=== PATIENT | female | born 1965 | race African-American/Black ===

== ENCOUNTER 2025-08-21 08:47 | Outpatient (REF) | payer BC, SELFPAY ==
[2025-08-21 09:59] LABS: MANUAL DIFF FLAG NO
[2025-08-21 10:05] LABS: Venous Blood Gas Refer to POC result
[2025-08-21 10:08] LABS: VBG HCO3 24 mmol/L (22-26); VBG O2 % Saturation 88.0 %
[2025-08-21 10:34] LABS: Hematocrit 41.5 % (37.0-47.0); Hemoglobin 13.5 g/dl (12.0-16.0); Imm Gran Abs Auto 0.03 X10*3/uL (0.00-0.03); Imm Gran Pct Auto 0.4 % (0.0-0.4); Lymphocytes Absolute Auto 1.8 X10*3/uL (1.2-4.9); Mean Corpuscular HGB Conc 32.5 g/dl (31.0-35.0); Mean Corpuscular Hemoglobin 27.4 pg (27.0-33.0); Mean Corpuscular Volume 84.2 fL (80.0-98.0); NRBC Abs Auto 0.000 X10*3/uL (0.0-0.012); NRBC Pct Auto 0.0 /100WBC (0.0-0.2); Platelet Count 319 X10*3/uL (160-400); Red Blood Count 4.93 X10*6/uL (4.20-5.50); White Blood Count 7.5 X10*3/uL (4.8-10.8)
[2025-08-21 10:54] LABS: D Dimer High Sensitivity 388 NG/ML
[2025-08-22 14:28] LABS: Proteinase 3 PR3 Antibodies <1.0 AI
[2025-08-22 15:28] LABS: Immunoglobulin G Subclass 1 648 mg/dL (382-929); Immunoglobulin G Subclass 2 357 mg/dL (241-700); Immunoglobulin G Subclass 3 65 mg/dL (22-178); Immunoglobulin G Subclass 4 103.9 mg/dL (4-86); Immunoglobulin G Total 1213 mg/dL (600-1640)
[2025-08-28 13:33] LABS: Asperg fumigatus Precip Abs NEGATIVE (NEGATIVE); Micropoly faeni Abs NEGATIVE (NEGATIVE); Saccharo pora viridis Abs NEGATIVE (NEGATIVE); Thermo candidus Abs NEGATIVE (NEGATIVE)
== END 2025-08-21 08:48 | disposition home or self-care (01) ==
LOC: HO.LAB 08:47
PROVIDERS: PCP Physician Assistant; Referring Provider Physician Assistant; Visit Provider Hospitalist
DX: J45.50 Severe persistent asthma, uncomplicated (principal); J33.9 Nasal polyp, unspecified; L20.82 Flexural eczema; R91.1 Solitary pulmonary nodule; R06.02 Shortness of breath; R91.8 Other nonspecific abnormal finding of lung field; Z01.84 Encounter for antibody response examination
CPT/HCPCS: 36415; 82103; 82164; 82784; 82785; 82803; 85025; 85379; 85652; 86021; 86331; 86606; 86609; 90471; 90656

== ENCOUNTER 2025-08-21 08:47 | Outpatient (AMB) | payer BC, SELFPAY ==
--- NOTE | 2025-08-21 08:53 | MHC.OFFVIS ---
Vital Signs 08/21/25 08:55 Height 5 ft 7 in Weight 250 lb 3.594 oz BMI 39.2 BP 142/78 H Blood Pressure Location Lt brachial Position Sitting Pulse 91 Pulse Source Pulse Oximeter Pulse Oximetry (%) 97 Oxygen Delivery Method Room Air Intake Visit Reasons: Asthma Cuprous Chloride Operator Required: No Accompanied by: Self / Same As Patient Allergies No Known Allergies Allergy (Verified 08/21/25 08:56) HPI Comments Details: The patient is here for pulmonary evaluation. The patient is a 60 year woman with known childhood asthma and significant allergies. She has been followed by Allergy for many years. The patient had been on allergy shots and now has been on Dupixent. Prior to Dupixent she had been on multiple other biologics without any significant response. Because of her ongoing symptoms and shortness of breath the patient was referred to Pulmonary at [facility]. There she did have a pulmonary function study which I personally reviewed demonstrating a [id number] obstructive ventilatory defects suggesting asthma COPD overlap syndrome. The patient also may have just had uncontrolled asthma. [facility] The patient did have a CT scan of the chest PE protocol back in February 2024 for underlying pulmonary nodule. I did personally evaluate the CAT scans in the nodules measuring around 8.5 mm in size. She did have a repeat CAT scan in August 2024 demonstrating no significant changes in that nodule. No evidence of any thromboembolic disease also not initial CAT scan back in February. In view of her ongoing symptoms a question of her wheezing and asthma and needing prednisone if there is any other etiologies. Therefore will go ahead and add additional blood work. Apparently there is a family member with underlying sarcoid which is her son. Although the pulmonary nodules that she has not location is not consistent with a diagnosis of sarcoid. Therefore, the patient will continue her current respiratory therapy since his effective for her. Consider budesonide nebs specially since she has some evidence of significant air trapping hyperinflation. We did talk about mechanical ways to help her self with that which will be playing harmonica singing and going for walks and deep breathing exercises. The patient will need to have a repeat CAT scan. Although we are going to go ahead and do blood work to figure out what kind of CAT scan to order. [facility] Medical History (Updated 08/21/25 @ 20:34 by Dalton Gray MD) Dyspnea Pulmonary nodule Eczema Nasal polyposis Asthma Social History (Updated 08/21/25 @ 08:58 by Irlanda Blount CMA) Patient Tobacco Use Status: Never used Tobacco Review of Systems Const Denies daytime sleepiness and Denies fever(s) Eyes Reports no additional complaints ENT Reports nasal congestion Card Denies chest pain Resp Reports chest congestion, Reports cough and Reports wheezing GI Reports no additional complaints Musc Reports no additional complaints Skin/Breast Reports rash Neuro Reports no additional complaints Endo Reports no additional complaints Jamison/Lymph Reports no additional complaints Aller/Immun Reports wheezing Physical Exam Vital Signs: Last Vital Signs Pulse 91 08/21/25 08:55 BP 142/78 H 08/21/25 08:55 Pulse Ox 97 08/21/25 08:55 Oxygen Delivery Method Room Air 08/21/25 08:55 BMI result Body Mass Index 39.2 Const General: comfortable HEENT Head: Yes normocephalic Neck Neck: Yes normal visual inspection Chest Chest palpation & inspection: normal inspection of the chest Resp Effort & Inspection: normal respiratory effort Auscultation: diminished lung sounds Cardio Heart sounds: S1 normal heart sound present and S2 normal heart sound present GI Palpation (GI): Soft to palpation Skin General skin exam: no rashes or lesions noted Extrem General: Yes no clubbing, cyanosis or edema Office Procedures Flu Questionnaire Does the patient have a severe egg allergy?: No Does the patient have severe life threatening allergies?: No Does the patient have a fever or illness today?: No Has the patient ever had Guillain-[place] Syndrome?: No Has the patient ever had any past reaction to a flu shot?: No Immunizations Fluarix [id number] (PF) 45 mcg (15 mcg x 3)/0.5 mL IM syringe Performing Provider: Dalton Gray MD [facility]forming [facility] [facility] Administered by: Usha Yo LPN on 08/21/25 09:36 Dose Route Admin Location Dispensed Lot Number Expiration Date NDC Hydrate Control Tender 0.5 mL IM Left Deltoid 0.5 mL [id number] 04/02/26 57133-728-85 Signal Patterns VIS Given Date VIS Provided VIS Publication Date 08/21/25 Single Vaccine 24 Eligibility Eligibility Date Funding Source Not [facility] Eligible 08/21/25 Private Assessment & Plan Assessment & Plan (1) Asthma: Code(s): J45.909 - Unspecified asthma, uncomplicated Category: Medical Qualifiers: Asthma severity: severe Asthma persistence: persistent Asthma complication type: uncomplicated Qualified Code(s): J45.50 - Severe persistent asthma, uncomplicated (2) Nasal polyposis: Code(s): J33.9 - Nasal polyp, unspecified Category: Medical (3) Eczema: Code(s): L30.9 - Dermatitis, unspecified Category: Medical Qualifiers: Eczema type: flexural Qualified Code(s): L20.82 - Flexural eczema (4) Pulmonary nodule: Code(s): R91.1 - Solitary pulmonary nodule Category: Medical (5) Dyspnea: Code(s): R06.00 - Dyspnea, unspecified Category: Medical Qualifiers: Dyspnea type: dyspnea on exertion Qualified Code(s): R06.09 - Other forms of dyspnea Plan continue Trelegy KEERTHI as needed continue Dupixent Bloodwork Repeat CT chest F/U 2-3 months Orders: Orders Complete Blood Count Auto Diff Today J45.909 - Unspecified asthma, uncomplicated Immunoglobulin E Today J45.909 - Unspecified asthma, uncomplicated ANCA Vasculitides Today J45.909 - Unspecified asthma, uncomplicated Alpha 1 Anti-trypsin Today J45.909 - Unspecified asthma, uncomplicated Angiotensin Converting Enzyme Today J45.909 - Unspecified asthma, uncomplicated Erythrocyte Sedimentation Rate Today J45.909 - Unspecified asthma, uncomplicated D Dimer High Sensitivity Today J45.909 - Unspecified asthma, uncomplicated Venous Blood Gas Today J45.909 - Unspecified asthma, uncomplicated Hypersensitive Pneumonitis Prf Today J45.909 - Unspecified asthma, uncomplicated, R91.8 - Other nonspecific abnormal finding of lung field Immunoglobulin G Subclasses Today J45.909 - Unspecified asthma, uncomplicated Influenza [id number] Immunization Today J45.909 - Unspecified asthma, uncomplicated Coding Level of Care Code New Pt Level 4 (10841) Diagnoses Severe persistent asthma without complication J45.50 Asthma severity: severe Asthma persistence: persistent Asthma complication type: uncomplicated Nasal polyposis J33.9 Flexural eczema L20.82 Eczema type: flexural Pulmonary nodule R91.1 Dyspnea on exertion R06.09 Dyspnea type: dyspnea on exertion Time Spent (min) 45
[2025-08-21 08:55] VITALS: BP 142/78; PULSE 91; O2SAT 97; BMI 39.2
== END 2025-08-21 09:46 | disposition home or self-care (01) ==
LOC: HO.HPS 08:47
PROVIDERS: PCP Physician Assistant; Referring Provider Physician Assistant; Visit Provider Hospitalist
DX: J45.50 Severe persistent asthma, uncomplicated (principal); J33.9 Nasal polyp, unspecified; L20.82 Flexural eczema; R91.1 Solitary pulmonary nodule; R06.09 Other forms of dyspnea; J45.909 Unspecified asthma, uncomplicated
CPT/HCPCS: 99204

== ENCOUNTER 2025-09-13 15:14 | Outpatient (REF) | payer BC, SELFPAY ==
--- OUTSIDE RECORDS SUMMARY | 2025-06-05 11:00 | XMS_ITS ---
Author Organization [facility] Address [address] [place] [address] Care Team Providers Care Commercial Subcontractor Name Role Phone Kristen Mendez Primary Care Provider Unavail able Ebonie Whitman [phone] Encounters Encounter Location Date Provider Diagnosis [address] [address] 06/05/2025 Ebonie Whitman Plan Of Treatment Next Appt Details Provider Name:Ebonie Keily Whitman , 11/13/2025 09:30:00 AM, [address] [place] [address] [place], [address], Progress Notes * Catherine BERMUDEZ TDOB:[birth year] (60 yo F)Acc No.[id number]:06/05/2025 Progress Note Patient: Jenifer YOGI Catherine Back Provider: Wong Whitman DPM :1965 A ge:60 Y S ex:Female Date:06/05/2025 Address:[address] [place], [place] Pcp:Krisetn Mendez Subjective: * Chief Complaints: * * Medical History: Objective: * Vitals: Assessment: Plan: * Treatment: * Images: * The named appointment provid er may or may not be the originator of this progress note, and it is not deemed complete until electronically signed by the appointment provider. Sign off status: Pending * Provider: Wong Whitman DPM Date: 0 06/05/2025 Generated for Juliano paniagua/Tuan/Nain on: 1 11/14/2024 10:47 PM EST
--- NOTE | ~2025-09-13 | CT_ITS ---
EXAMINATION: CT CHEST ANGIOGRAPHY WITH IV CONTRAST INDICATION: R06.09 - Other forms of dyspnea COMPARISON: There are no prior studies available for comparison. TECHNIQUE: Helical CT scan of the chest was performed following administration of intravenous contrast (65 mL Omnipaque 350). The contrast bolus was timed to optimally opacify the pulmonary arteries. Thin sections were obtained through the pulmonary arteries. Coronal and sagittal reformatted images were generated. 3D/MIP reconstructed images are also obtained and reviewed. This CT exam was performed with one or more of the following dose reduction techniques: automated exposure control, adjustment of the mA and/or kV according to patient size, use of iterative reconstruction technique. DLP: 150 mGy-cm CHEST: THYROID: The thyroid gland is unremarkable. PULMONARY ARTERIES: No intraluminal filling defects are identified within the pulmonary arteries to suggest pulmonary emboli. LUNGS: There is linear scarring in the right middle lobe and left lower lobe. There is a 9 x 8 mm nodule in the right lower lobe (series 6, image 111). No additional nodules or airspace opacities are identified. MEDIASTINUM: There is no mediastinal lymphadenopathy. JORGE: There is no hilar lymphadenopathy. CARDIOVASCULATURE: The heart is normal in size. There is no pericardial effusion. The thoracic aorta is normal in caliber. DEGREE OF CORONARY CALCIFICATION: not evaluable, due to dense contrast in the coronary arteries. PLEURA: There is no pleural effusion. No pneumothorax. MAIN AIRWAYS: The mainstem bronchi and proximal branches are patent. AXILLA: There is no axillary lymphadenopathy. UPPER ABDOMEN: The visualized portions of the liver, spleen, and adrenals are unremarkable. BONES AND SOFT TISSUES: Unremarkable. CT/CT angio chest PE protocol IMPRESSION: 1. No evidence of pulmonary emboli. 2. 9 x 8 mm right lower lobe nodule. PET/CT scan is recommended. Findings were sent to Dr. Gray by secure text message on 09/14/2025 at 7:13 AM. Fleischner Criteria for pulmonary nodule follow-up SOLID NODULES: Low risk patient: <6mm: no follow-up 6-8mm: 6 month follow-up CT >8mm: PET/Biopsy/ 3 month follow-up CT High risk patient: <6mm: 12 month follow-up CT 6-8mm: 6 month follow-up CT >8mm: PET/Biopsy/ 3 month follow-up CT SUB-SOLID/GROUNDGLASS NODULES: All patients: > or = 6mm: 6 month follow-up CT *Please note that in patients in the following categories, the Fleischner criteria do not apply: Immunocompromised, lung cancer screening population, age below 35, and patients with known malignancy Electronically signed by: Frank Pablo MD 09/14/2025 07:14 AM JAIME
[2025-09-13 16:04] LABS: Anion Gap 11 (12-20); Blood Urea Nitrogen 20 mg/dL (9-16); Calcium 9.9 mg/dL (8.4-10.2); Carbon Dioxide 26 mmol/L (22-29); Chloride 106 mmol/L (96-108); Estimated Glomerular Filt Rate > 60; Potassium 4.0 mmol/L (3.3-5.1); Sodium 139 mmol/L (135-145)
[2025-09-13] MEDS: iohexoL 350 MG/ML 100 ML INFUS..BTL 65 ML IV (17:01)
--- OUTSIDE RECORDS SUMMARY | 2025-09-13 22:47 | XMS_ITS | Patient Health Record ---
[facility] Address [address] [place] [address] Care Team Providers Care Take Away Man Name Role Phone Kristen Mendez Primary Care Provider Unavail able Black, Ebonie Unavailable [phone] Pascual Pedro Unavailable [phone] Allergies Allergen (clinical drug ingredient) Drug/Non Drug Allergy documented on EMR Reaction Allergy Type Onset Date Status peaches and pears (uncoded) Unknown Allergy Active Results Component Value Reference Range Notes X ray : Foot, left 3V Reviewed date:07/17/2025 12:22:08 PM Interpretation:See Examination above Performing Lab: Notes/Report: See Examination above X ray : Foot, right 3V Reviewed date:07/17/2025 12:21:54 PM Interpretation:See Examination above Performing Lab: Notes/Report: See Examination above Reason For Referral No Information Medications Medication SIG (Take, Route, Frequency, Duration) Notes Start Date End Date Status Tezspire 210 MG/1.91ML as directed Subcutaneous Active Night Splint AFO - L1930 1 wear when at rest; Duration: 30 days Active Night Splint AFO - L1930 1 wear when at rest; Duration: 30 days Active Dupixent Not-Taking Ketoconazole 2 % in between toes Externally Once a day; Duration: 30 days Active Fluticasone Propionate Active Ammonium Lactate 12 % 1 application Exte rnally to affected areas of dry skin to feet except for between the toes Twice a day; Duration: 30 days Active Albuterol Active Singulair Active Advair HFA Active Immunizations Vaccine Route Administration Date Status Comme nts Influenza Unknown 07/17/2025 Refused Social History Tobacco Use: Social History Observation Description Date Details (start date - stop date) Never Smoker NA - NA Tobacco use other than smoking: Question Answer Notes Are you an other tobacco user? No Tobacco Control (Standard) Question Answer Notes Tobacco use: Nonsmoker Additional Findings: Tobacco non-user Current no nsmoker AUDIT-C (Standard) Question Answer Notes Did you have a drink contain ing alcohol in the past year? Yes How often did you have six o r more drinks on one occasion in the past year? Never (0 point) How many drinks did you have on a typical day when you were drinking in the past year? 1 or 2 drinks (0 point) How often did you have a dri nk containing alcohol in the past year? Monthly or less (1 point) Points 1 Interpretation Negative Problems Problem Type SNOMED Code ICD Code Onset Dates Problem Status W/U Status Risk Notes Problem Achilles bursitis (789688513) Achilles tendinitis of right lower extremity (M76.61) Active confirmed Problem Achilles bursitis (470021317) Achilles tendinitis of left lower extremity (M76.62) Active confirmed Vital Signs Blood pressure diastolic 68 mm Hg 07/17/2025 Height 5ft 7in in 07/17/2025 Blood pressure systolic 118 mm Hg 07/17/2025 Weight 233 lbs 07/17/2025 BMI 36.49 kg/m2 07/17/2025 Procedures Procedure Date Ordered Date Performed Result Body Sit e 06294-KMCKXWI NAIL, 1-5 09/28/2024 N/A [id number] NAIL, 1-5 07/17/2025 N/A Encounters Encounter Location Date Provider Diagnosis [address] [address] 09/28/2024 Pascual Pedro Xerosis of skin L85. 3 ; Onychomycosis B35.1 ; Pain in right toe(s) M79.674 ; Pain in left toe(s) M79.675 and Tinea pedis of both feet B35.[address] [address] 07/17/2025 Ebonie Black Xerosis of skin L85. 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 ; Pain of left heel M79.672 and Exostosis of left posterior calcaneus M77.32 [facility] [address] [address] 09/25/2024 Pascual Pedro [address] [address] 01/11/2025 Ebonie Whitman Tinea pedis of both feet B35.[address] [address] 06/01/2025 Ebonie J Carlos [address] [address] 08/06/2025 Ebonie Black Assessments Encounter Date Diagnosis (ICD Code) Assessment Notes Treatment Notes Treatment Clinical Notes Section Notes 09/28/2024 Xerosis of skin (ICD-10 - L85.3) 09/28/2024 Onychomycosis (ICD-10 - B35.1) 01/11/2025 Tinea pedis of both feet (ICD-10 - B35.3) 07/17/2025 Achilles tendinitis of left lower extremity (ICD-10 - M76.62) Patient Educated with: HEEL CORD STRETCHES.pdf (HEEL CORD STRETCHES.pdf) Patient Educated with: RICE THERAPY.pdf (RICE THERAPY.pdf) 07/17/2025 Xerosis of skin (ICD-10 - L85.3) 07/17/2025 Onychomycosis (ICD-10 - B35.1) 09/28/2024 Pain in right toe(s) (ICD-10 - M79.674) 09/28/2024 Pain in left toe(s) (ICD-10 - M79.675) 07/17/2025 Pain in right toe(s) (ICD-10 - M79.674) 07/17/2025 Pain in left toe(s) (ICD-10 - M79.675) 09/28/2024 Tinea pedis of both feet (ICD-10 - B35.3) 07/17/2025 Tinea pedis of both feet (ICD-10 - B35.3) 07/17/2025 Pain of right heel (ICD-10 - M79.671) 07/17/2025 Achilles tendinitis of right lower extremity (ICD-10 - M76.61) Patient Educated with: HEEL CORD STRETCHES.pdf (HEEL CORD STRETCHES.pdf) Patient Educated with: RICE THERAPY.pdf (RICE THERAPY.pdf) 07/17/2025 Exostosis of right posterior calcaneus (ICD-10 - M77.31) 07/17/2025 Pain of left heel (ICD-10 - M79.672) 07/17/2025 Exostosis of left posterior calcaneus (ICD-10 - M77.32) Plan Of Treatment Pending Test Test Name Order Date [id number] NAIL, 1-5 09/28/2024 [id number] NAIL, 1-5 07/17/2025 Next Appt Details Provider Name:Ebonie Michaud J Carlos , 11/13/2025 09:30:00 AM, [address] [facility], [place], [address], Insurance Providers Payer Name Payer Address Payer Phone Subscriber Number Group Number Insured Name Patient Relationship to Insured Coverage Start Date Coverage End Date [facility] [employer] Others [address] [place] [address] [phone] [id number] Catherine Benson Self - patient is the insured Medical (General) History Medical History History ICD Code asthma Back,Hip,and Knee pain Measles Chicken pox Surgical History Surgery Date(Month/Year) tonsillectomy 1978 tubal ligation 05/1999
--- OUTSIDE RECORDS SUMMARY | 2025-09-13 22:48 | XMS_ITS | Data Portability ---
Author Organization [facility], Main Office Address [address] [facility] [address] [place] [id number] Care Team Providers Care Tafe Lecturer Name Role Phone IAM PIERRE Process Line Operator YESICA ASCENCIO Customer Service Representative CHANCE MORENO Wirer Helper ROOPA GONZALEZ Motorcycle Service Technician [phone] JOSE GUADALUPE PRATT Sports Medicine WILLIAM MOREIRA Medical Oncologist KRISTEN MENDEZ Primary Care Provider SHAHAB RAY Paper Cutter Operator MALINI PARRISH Primary Care Provider Assessment No assessment recorded. Plan of Treatment Reminders Order Date Submit Date Provider Last Modified By Organization Details Last Modified Time Details Appointments None recorde d. Lab CBC w/ auto diff 2024 025 ARTIS [facility], [address], [place], [address], 5 18:05:46 iron + total iron-bi nding capacit y (TIBC), serum 2024 025 ARTIS [facility] (Centralized Electronic Ordering - All Locations), Patient Can Go To The Location Of Their Choice, [id number] 5 18:05:49 ferriti n, serum or plasma 2024 025 ARTIS [facility] (Centralized Electronic Ordering - All Locations), Patient Can Go To The Location Of Their Choice, 18:05:53 retic count, blood 2024 025 ARTIS [facility] (Centralized Electronic Ordering - All Locations), Patient Can Go To The Location Of Their Choice, 18:05:54 HIV 1 + 2, meaning ful use set 2024 025 ARTIS [facility], [address], [place], [address], 18:05:51 trepone ma pallidu m IgG + IgM Ab, QL, IA, serum 2024 025 [email or web address] [facility] (Centralized Electronic Ordering - All Locations), Patient Can Go To The Location Of Their Choice, 09:06:18 CT + NG RNA, PCR, unspeci fied specime n 2024 025 [email or web address] [facility] (Centralized Electronic Ordering - All Locations), Patient Can Go To The Location Of Their Choice, 09:06:18 lipid panel, serum 2024 025 ARTIS [facility], [address], [place], [address], 18:05:48 BMP, serum or plasma 2024 025 [facility], [address], [place], [address], 18:05:47 TSH, ultra-s ensitiv e, serum 2024 025 ARTIS [facility], [address], [place], [address], 18:05:52 Hepatit is C IgG Ab, qual, serum 2024 025 ARTIS [facility] (Centralized Electronic Ordering - All Locations), Patient Can Go To The Location Of Their Choice, [address] 06/10/202 5 18:05:51 lipid panel, serum 2023 024 ARTIS [facility] (Centralized Electronic Ordering - All Locations), Patient Can Go To The Location Of Their Choice, [address] 4 06:07:55 Referral gastroe nterolo gist referra l - for egd 2024 025 ARTIS Pierre MD, [address] [facility] [address], [place], [address], 5 11:56:05 physica l medicin e and rehabil itation referra l 2024 025 ARTIS Lopez MD, [address] [facility], [place], [address], 5 18:17:45 audiolo gist referra l - bilater al 2023 024 [facility] Aud[facility], [address] [facility] [place], [address], 4 09:55:22 Procedures None recorde d. Surgeries None recorde d. Imaging XR, cervica l spine 2024 025 [facility] Radiology, [address] [place], [address], 5 10:20:26 US, thyroid 2024 025 [facility] (Ultrasound), [address] [place], [address], 5 19:13:04 XR, lumbar spine 2024 025 [facility]iology, [address] [place], [address], 5 09:50:43 XR, thoraci c spine 2024 025 [facility], [address] [place], [address], 09:50:43 CT, chest, w/o contras t - to check on size of inciden viktoria 9 x 5 x 7 mm (averag e 7 mm) right lower lobe pulmona ry nodule noted on CTA done on 02/2024 024 [email or web address] [facility] (Ultrasound), [address] [place], [address], 10:03:41 Medication Orders cyclobe nzaprin e 5 mg tablet 2024 025 [facility]/Pharmacy #[id number], [address] [place], [address], 12:34:47 ciclopi chinyere 8 % topical solutio n 2023 024 [facility]/Pharmacy #[id number], [address] [place], [address], 11:21:45 Patient TargetsNo targets recorded. Patient Instructions Encounter Date Encounter Id Patient Instructions Last Modified By Organization Details Last Modified Time 02/21/2024 [id number] Starting a Weight-Loss Plan: Care Instructions [email or web address] Not available 03/06/2024 09:31:58 Nutrition Referral and Weight Management Follow-up Information [email or web address] Not available 03/06/2024 09:31:58 well visit, wome n 50 to 65: care instructions [email or web address] Not available 02/21/2024 09:17:22 08/04/2024 [id number] high cholesterol : care instructions Not available 08/04/2024 11:21:43 11/15/2024 [id number] Patient will follow up and keep appointment as scheduled. [email or web address] Not available 11/15/2024 20:25:58 02/23/2025 [id number] back care and preventing injuries: care instructions Not available 02/23/2025 13:51:41 getting back to normal after low back pain: care instructions Not available 02/23/2025 13:51:40 learning about relief for back pain Not available 02/23/2025 13:51:40 high cholesterol : care instructions Not available 02/23/2025 13:51:40 medical record request* [email or web address] Not available 02/28/2025 10:30:11 08/15/2025 [id number] neck pain: care instructions [email or web address] Not available 08/15/2025 12:34:40 neck: exercises pmadden Not available 08/15/2025 12:34:40 healthy upper back: exercises pmadden Not available 08/15/2025 12:34:40 neck trapeziss upper fibers standing stretch: exercises pmadden Not available 08/15/2025 12:34:40 headache: care instructions pmadden Not available 08/15/2025 12:34:40 tension headache : care instructions pmadden Not available 08/15/2025 12:34:41 Patient will follow up and keep appointment as scheduled. 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 Digger Referral for Marbin ateral hearing loss bilateral Referring Physician: Zehra Tobias, Family Medicine, Encounter Date: 02/21/2024 Physical Medicine And Rehabi litation Referral for Strain of back muscle Referring Physician: Malini Parrish, Internal Medicine, Encounter Date: 11/15/2024 Process Line Operator Referral for Gastroesophageal reflux disease without esophagitis for egd Referring Physician: Kristen Mendez, Family Medicine, Encounter Date: 02/23/2025 Results Created Date Observation Date Name Description Value Unit Range Abnormal Flag Note LastModifiedBy Organization Detail LastModifiedTime 02/21/20 24 02/22/2024 LIPID PANEL cholesterol, total 258 mg/dL 100-19 9 above high normal Not Available [facility] ([facility]) [address] [facility], [place], [address], 02/22/2024 06:07:55 02/21/20 24 02/22/2024 LIPID PANEL triglyceride s 118 mg/dL 0-149 Not Available [facility] ([facility]) [address] [facility], [place], [address], 02/22/2024 06:07:55 02/21/20 24 02/22/2024 LIPID PANEL HDL cholesterol 66 mg/dL >39 Not Available [facility] ([facility]) [address] [place], [address], 02/22/2024 06:07:55 02/21/20 24 02/22/2024 LIPID PANEL VLDL cholesterol katia 21 mg/dL 5-40 Not Available [facility] ([facility]) [address] [place], [address], 02/22/2024 06:07:55 02/21/20 24 02/22/2024 LIPID PANEL LDL chol calc ([facility]) 171 mg/dL 0-99 above high normal Not Available [facility] ([facility]) [address] [place], [address], 02/22/2024 06:07:55 02/21/20 24 02/22/2024 LIPID PANEL comment: ORDER SELECTOR Not Available [facility] ([facility]) [address] [place], [address], 02/22/2024 06:07:55 02/21/20 24 02/22/2024 TSH+F REE T4 TSH 0.576 uIU/m L 0.450- 4.500 Not Available [facility] ([facility]) [address] [place], [address], 02/22/2024 06:07:57 02/21/20 24 02/22/2024 TSH+F REE T4 T4,free(dire ct) 1.38 NG/dL 0.82-1 .77 Not Available [facility] ([facility]) [address] [place], [address], 02/22/2024 06:07:57 02/21/20 24 02/21/2024 CBC WITH DIFFE RENTI AL/PL ATELE T WBC 9.6 x10e3 /uL 3.4-10 .8 Not Available [facility] ([facility]) [address] [facility], [place], [address], 02/22/2024 06:07:58 02/21/20 24 02/21/2024 CBC WITH DIFFE RENTI AL/PL ATELE T RBC 4.55 x10e6 /uL 3.77-5 .28 Not Available [facility] ([facility]) [address] [facility], [place], [address], 02/22/2024 06:07:58 02/21/20 24 02/21/2024 CBC WITH DIFFE RENTI AL/PL ATELE T hemoglobin 12.7 g/dL 11.1-1 5.9 Not Available [facility] ([facility]) [address] [facility], [place], [address], 02/22/2024 06:07:58 02/21/20 24 02/21/2024 CBC WITH DIFFE RENTI AL/PL ATELE T hematocrit 39.2 % 34.0-4 6.6 Not Available [facility] ([facility]) [address] [facility], [place], [address], 02/22/2024 06:07:58 02/21/20 24 02/21/2024 CBC WITH DIFFE RENTI AL/PL ATELE T MCV 86 fL 79-97 Not Available [facility] ([facility]) [address] [place], [address], 02/22/2024 06:07:58 02/21/20 24 02/21/2024 CBC WITH DIFFE RENTI AL/PL ATELE T MCH 27.9 pg 26.6-3 3.0 Not Available [facility] ([facility]) [address] [place], [address], 02/22/2024 06:07:58 02/21/20 24 02/21/2024 CBC WITH DIFFE RENTI AL/PL ATELE T MCHC 32.4 g/dL 31.5-3 5.7 Not Available [facility] ([facility]) [address] [facility], [place], [address], 02/22/2024 06:07:58 02/21/20 24 02/21/2024 CBC WITH DIFFE RENTI AL/PL ATELE T RDW 15.4 % 11.7-1 5.4 Not Available [facility] ([facility]) [address] [facility], [place], [address], 02/22/2024 06:07:58 02/21/20 24 02/21/2024 CBC WITH DIFFE RENTI AL/PL ATELE T platelets 309 x10e3 /uL 150-45 0 Not Available [facility] ([facility]) [address] [facility], [place], [address], 02/22/2024 06:07:58 02/21/20 24 02/21/2024 CBC WITH DIFFE RENTI AL/PL ATELE T neutrophils 67 % not estab. Not Available [facility] ([facility]) [address] [facility], [place], [address], 02/22/2024 06:07:58 02/21/20 24 02/21/2024 CBC WITH DIFFE RENTI AL/PL ATELE T lymphs 23 % not estab. Not Available [facility] ([facility]) [address] [facility], [place], [address], 02/22/2024 06:07:58 02/21/20 24 02/21/2024 CBC WITH DIFFE RENTI AL/PL ATELE T monocytes 8 % not estab. Not Available [facility] ([facility]) [address] [facility], [place], [address], 02/22/2024 06:07:58 02/21/20 24 02/21/2024 CBC WITH DIFFE RENTI AL/PL ATELE T eos 2 % not estab. Not Available [facility] ([facility]) [address] [facility], [place], [address], 02/22/2024 06:07:58 02/21/20 24 02/21/2024 CBC WITH DIFFE RENTI AL/PL ATELE T basos 0 % not estab. Not Available [facility] ([facility]) [address] [place], [address], 02/22/2024 06:07:58 02/21/20 24 02/21/2024 CBC WITH DIFFE RENTI AL/PL ATELE T immature cells ORDER SELECTOR Not Available [facility] ([facility]) [address] [place], [address], 02/22/2024 06:07:58 02/21/20 24 02/21/2024 CBC WITH DIFFE RENTI AL/PL ATELE T neutrophils (absolute) 6.4 x10e3 /uL 1.4-7. 0 Not Available [facility] ([facility]) [address] [place], [address], 02/22/2024 06:07:58 02/21/20 24 02/21/2024 CBC WITH DIFFE RENTI AL/PL ATELE T lymphs (absolute) 2.2 x10e3 /uL 0.7-3. 1 Not Available [facility] ([facility]) [address] [place], [address], 02/22/2024 06:07:58 02/21/20 24 02/21/2024 CBC WITH DIFFE RENTI AL/PL ATELE T monocytes(ab solute) 0.8 x10e3 /uL 0.1-0. 9 Not Available [facility] ([facility]) [address] [place], [address], 02/22/2024 06:07:58 02/21/20 24 02/21/2024 CBC WITH DIFFE RENTI AL/PL ATELE T eos (absolute) 0.2 x10e3 /uL 0.0-0. 4 Not Available [facility] ([facility]) [address] [place], [address], 02/22/2024 06:07:58 02/21/20 24 02/21/2024 CBC WITH DIFFE RENTI AL/PL ATELE T baso (absolute) 0.0 x10e3 /uL 0.0-0. 2 Not Available [facility] ([facility]) [address] [facility], [place], [address], 02/22/2024 06:07:58 02/21/20 24 02/21/2024 CBC WITH DIFFE RENTI AL/PL ATELE T immature granulocytes 0 % not estab. Not Available [facility] ([facility]) [address] [facility], [place], [address], 02/22/2024 06:07:58 02/21/20 24 02/21/2024 CBC WITH DIFFE RENTI AL/PL ATELE T immature grans (abs) 0.0 x10e3 /uL 0.0-0. 1 Not Available [facility] ([facility]) [address] [facility], [place], [address], 02/22/2024 06:07:58 02/21/20 24 02/21/2024 CBC WITH DIFFE RENTI AL/PL ATELE T NRBC ORDER SELECTOR Not Available [facility] ([facility]) [address] [facility], [place], [address], 02/22/2024 06:07:58 02/21/20 24 02/21/2024 CBC WITH DIFFE RENTI AL/PL ATELE T hematology comments: ORDER SELECTOR Not Available [facility] ([facility]) [address] [facility], [place], [address], 02/22/2024 06:07:58 02/21/20 24 02/22/2024 COMP. METAB OLIC PANEL (14) glucose 100 mg/dL 70-99 above high normal Not Available [facility] ([facility]) [address] [facility], [place], [address], 02/22/2024 06:07:59 02/21/2024 0202/22/2024 COMP. METAB OLIC PANEL (14) BUN 12 mg/dL 6-24 Not Available [facility] ([facility]) [address] [place], [address], 02/22/2024 06:07:59 02/21/20 24 02/22/2024 COMP. METAB OLIC PANEL (14) creatinine 0.74 mg/dL 0.57-1 .00 Not Available [facility] ([facility]) [address] [place], [address], 02/22/2024 06:07:59 02/21/20 24 02/22/2024 COMP. METAB OLIC PANEL (14) eGFR 94 mL/mi n/1.7 3 >59 Not Available [facility] ([facility]) [address] [facility], [place], [address], 02/22/2024 06:07:59 02/21/20 24 02/22/2024 COMP. METAB OLIC PANEL (14) BUN/creatini ne ratio 16 9-23 Not Available [facility] ([facility]) [address] [place], [address], 02/22/2024 06:07:59 02/21/20 24 02/22/2024 COMP. METAB OLIC PANEL (14) sodium 142 mmol/ L 134-14 4 Not Available [facility] ([facility]) [address] [place], [address], 02/22/2024 06:07:59 02/21/20 24 02/22/2024 COMP. METAB OLIC PANEL (14) potassium 4.1 mmol/ L 3.5-5. 2 Not Available [facility] ([facility]) [address] [place], [address], 02/22/2024 06:07:59 02/21/20 24 02/22/2024 COMP. METAB OLIC PANEL (14) chloride 105 mmol/ L 96-106 Not Available [facility] ([facility]) [address] [place], [address], 02/22/2024 06:07:59 02/21/20 24 02/22/2024 COMP. METAB OLIC PANEL (14) carbon dioxide, total 21 mmol/ L 20 Not Available [facility] ([facility]) [address] [place], [address], 02/22/2024 06:07:59 02/21/20 24 02/22/2024 COMP. METAB OLIC PANEL (14) calcium 9.8 mg/dL 8.7-10 .2 Not Available [facility] ([facility]) [address] [place], [address], 02/22/2024 06:07:59 02/21/20 24 02/22/2024 COMP. METAB OLIC PANEL (14) protein, total 6.7 g/dL 6.0-8. 5 Not Available [facility] ([facility]) [address] [place], [address], 02/22/2024 06:07:59 02/21/20 24 02/22/2024 COMP. METAB OLIC PANEL (14) albumin 3.9 g/dL 3.8-4. 9 Not Available [facility] ([facility]) [address] [place], [address], 02/22/2024 06:07:59 02/21/20 24 02/22/2024 COMP. METAB OLIC PANEL (14) globulin, total 2.8 g/dL 1.5-4. 5 Not Available [facility] ([facility]) [address] [place], [address], 02/22/2024 06:07:59 02/21/20 24 02/22/2024 COMP. METAB OLIC PANEL (14) A/G ratio 1.4 1.2-2. 2 Not Available [facility] ([facility]) [address] [facility], [place], [address], 02/22/2024 06:07:59 02/21/20 24 02/22/2024 COMP. METAB OLIC PANEL (14) bilirubin, total 0.5 mg/dL 0.0-1. 2 Not Available [facility] ([facility]) [address] [place], [address], 02/22/2024 06:07:59 02/21/20 24 02/22/2024 COMP. METAB OLIC PANEL (14) alkaline phosphatase 80 IU/L 44-121 Not Available [facility] ([facility]) [address] [place], [address], 02/22/2024 06:07:59 02/21/20 24 02/22/2024 COMP. METAB OLIC PANEL (14) AST (SGOT) 20 IU/L 0-40 Not Available [facility] ([facility]) [address] [place], [address], 02/22/2024 06:07:59 02/21/20 24 02/22/2024 COMP. METAB OLIC PANEL (14) ALT (SGPT) 29 IU/L 0-32 Not Available [facility] ([facility]) [address] [place], [address], 02/22/2024 06:07:59 02/21/20 24 02/22/2024 IRON AND TIBC iron bind.cap.(TI BC) 310 ug/dL 250-45 0 Not Available [facility] ([facility]) [address] [place], [address], 02/22/2024 06:08:00 02/21/20 24 02/22/2024 IRON AND TIBC UIBC 224 ug/dL 131-42 5 Not Available [facility] ([facility]) [address] [place], [address], 02/22/2024 06:08:00 02/21/20 24 02/22/2024 IRON AND TIBC iron 86 ug/dL 27-159 Not Available [facility] ([facility]) [address] [facility], [place], [address], 02/22/2024 06:08:00 02/21/20 24 02/22/2024 IRON AND TIBC iron saturation 28 % 15-55 Not Available [facility] ([facility]) [address] [facility], [place], [address], 02/22/2024 06:08:00 02/21/20 24 02/22/2024 VITAM IN D, 25-HY DROXY vitamin D, 25-hydroxy 26.2 NG/mL 30.0-1 00.0 below low normal Vitam in D defic iency has been defin ed by the Insti tute of Medic ine and an Endoc rine Socie ty pract ice guide line as a level of serum 25-OH vitam in D less than 20 ng/mL (1,2) . The Endoc rine Socie ty went on to furth er defin e vitam in D insuf ficie ncy as a level betwe en 21 and 29 ng/mL (2). 1. IOM (Inst itute of Medic ine). 2009. Dieta ry refer ence intak es for calci um and D. Radha frost [place]: [facility] . 2. Donna flores [place], Kiki ey [place], Chad off-F errar i GARNER, et al. Evalu ation , treat ment, and preve ntion of vitam in D defic iency : an Endoc rine Socie ty clini katia pract ice guide line. JCEM. 2010; 96(7) :1911 -30. Not Available [facility] ([facility]) [address] [facility], [place], [address], 02/22/2024 06:08:01 03/12/20 25 03/12/2025 CBC WITH DIFFE RENTI AL/PL ATELE T WBC 5.8 x10e3 /uL 3.4-10 .8 normal Not Available [facility] ([facility]) [address] [facility], [place], [address], 03/13/2025 18:05:46 03/12/20 25 03/12/2025 CBC WITH DIFFE RENTI AL/PL ATELE T RBC 4.65 x10e6 /uL 3.77-5 .28 normal Not Available [facility] ([facility]) [address] [place], [address], 03/13/2025 18:05:46 03/12/20 25 03/12/2025 CBC WITH DIFFE RENTI AL/PL ATELE T hemoglobin 12.8 g/dL 11.1-1 5.9 normal Not Available [facility] ([facility]) [address] [place], [address], 03/13/2025 18:05:46 03/12/20 25 03/12/2025 CBC WITH DIFFE RENTI AL/PL ATELE T hematocrit 40.4 % 34.0-4 6.6 normal Not Available [facility] ([facility]) [address] [place], [address], 03/13/2025 18:05:46 03/12/20 25 03/12/2025 CBC WITH DIFFE RENTI AL/PL ATELE T MCV 87 fL 79-97 normal Not Available [facility] ([facility]) [address] [place], [address], 03/13/2025 18:05:46 03/12/20 25 03/12/2025 CBC WITH DIFFE RENTI AL/PL ATELE T MCH 27.5 pg 26.6-3 3.0 normal Not Available [facility] ([facility]) [address] [place], [address], 03/13/2025 18:05:46 03/12/20 25 03/12/2025 CBC WITH DIFFE RENTI AL/PL ATELE T MCHC 31.7 g/dL 31.5-3 5.7 normal Not Available [facility] ([facility]) [address] [facility], [place], [address], 03/13/2025 18:05:46 03/12/20 25 03/12/2025 CBC WITH DIFFE RENTI AL/PL ATELE T RDW 14.4 % 11.7-1 5.4 Not Available [facility] ([facility]) [address] [facility], [place], [address], 03/13/2025 18:05:46 03/12/20 25 03/12/2025 CBC WITH DIFFE RENTI AL/PL ATELE T platelets 297 x10e3 /uL 150-45 0 normal Not Available [facility] ([facility]) [address] [facility], [place], [address], 03/13/2025 18:05:46 03/12/20 25 03/12/2025 CBC WITH DIFFE RENTI AL/PL ATELE T neutrophils 51 % not estab. normal Not Available [facility] ([facility]) [address] [facility], [place], [address], 03/13/2025 18:05:46 03/12/20 25 03/12/2025 CBC WITH DIFFE RENTI AL/PL ATELE T lymphs 35 % not estab. normal Not Available [facility] ([facility]) [address] [facility], [place], [address], 03/13/2025 18:05:46 03/12/20 25 03/12/2025 CBC WITH DIFFE RENTI AL/PL ATELE T monocytes 9 % not estab. normal Not Available [facility] ([facility]) [address] [facility], [place], [address], 03/13/2025 18:05:46 03/12/20 25 03/12/2025 CBC WITH DIFFE RENTI AL/PL ATELE T eos 4 % not estab. normal Not Available [facility] ([facility]) [address] [place], [address], 03/13/2025 18:05:46 03/12/20 25 03/12/2025 CBC WITH DIFFE RENTI AL/PL ATELE T basos 1 % not estab. normal Not Available [facility] ([facility]) [address] [facility], [place], [address], 03/13/2025 18:05:46 03/12/20 25 03/12/2025 CBC WITH DIFFE RENTI AL/PL ATELE T immature cells ORDER SELECTOR Not Available [facility] ([facility]) [address] [facility], [place], [address], 03/13/2025 18:05:46 03/12/20 25 03/12/2025 CBC WITH DIFFE RENTI AL/PL ATELE T neutrophils (absolute) 3.0 x10e3 /uL 1.4-7. 0 normal Not Available [facility] ([facility]) [address] [place], [address], 03/13/2025 18:05:46 03/12/20 25 03/12/2025 CBC WITH DIFFE RENTI AL/PL ATELE T lymphs (absolute) 2.0 x10e3 /uL 0.7-3. 1 normal Not Available [facility] ([facility]) [address] [place], [address], 03/13/2025 18:05:46 03/12/20 25 03/12/2025 CBC WITH DIFFE RENTI AL/PL ATELE T monocytes(ab solute) 0.5 x10e3 /uL 0.1-0. 9 normal Not Available [facility] ([facility]) [address] [place], [address], 03/13/2025 18:05:46 03/12/20 25 03/12/2025 CBC WITH DIFFE RENTI AL/PL ATELE T eos (absolute) 0.3 x10e3 /uL 0.0-0. 4 normal Not Available [facility] ([facility]) [address] [facility], [place], [address], 03/13/2025 18:05:46 03/12/20 25 03/12/2025 CBC WITH DIFFE RENTI AL/PL ATELE T baso (absolute) 0.1 x10e3 /uL 0.0-0. 2 normal Not Available [facility] ([facility]) [address] [facility], [place], [address], 03/13/2025 18:05:46 03/12/20 25 03/12/2025 CBC WITH DIFFE RENTI AL/PL ATELE T immature granulocytes 0 % not estab. Not Available [facility] ([facility]) [address] [facility], [place], [address], 03/13/2025 18:05:46 03/12/20 25 03/12/2025 CBC WITH DIFFE RENTI AL/PL ATELE T immature grans (abs) 0.0 x10e3 /uL 0.0-0. 1 Not Available [facility] ([facility]) [address] [facility], [place], [address], 03/13/2025 18:05:46 03/12/20 25 03/12/2025 CBC WITH DIFFE RENTI AL/PL ATELE T NRBC ORDER SELECTOR Not Available [facility] ([facility]) [address] [facility], [place], [address], 03/13/2025 18:05:46 03/12/20 25 03/12/2025 CBC WITH DIFFE RENTI AL/PL ATELE T hematology comments: ORDER SELECTOR Not Available [facility] ([facility]) [address] [facility] [address], [place], [address], 03/13/2025 18:05:46 03/12/20 25 03/12/2025 BASIC METAB OLIC PANEL (8) sodium 142 mmol/ L 134-14 4 normal Not Available [facility] ([facility]) [address] [place], [address], 03/13/2025 18:05:47 03/12/20 25 03/12/2025 BASIC METAB OLIC PANEL (8) potassium 4.2 mmol/ L 3.5-5. 2 normal Not Available [facility] ([facility]) [address] [facility] [address] [place], [place], [address], 03/13/2025 18:05:47 03/12/20 25 03/12/2025 BASIC METAB OLIC PANEL (8) chloride 107 mmol/ L 96-106 above high normal Not Available [facility] ([facility]) [address] [place], [address], 03/13/2025 18:05:47 03/12/20 25 03/13/2025 BASIC METAB OLIC PANEL (8) glucose 101 mg/dL 70-99 above high normal Not Available [facility] ([facility]) [address] [place], [address], 03/13/2025 18:05:47 03/12/20 25 03/13/2025 BASIC METAB OLIC PANEL (8) BUN 15 mg/dL 6-24 normal Not Available [facility] ([facility]) [address] [place], [address], 03/13/2025 18:05:47 03/12/20 25 03/13/2025 BASIC METAB OLIC PANEL (8) creatinine 0.78 mg/dL 0.57-1 .00 normal Not Available [facility] ([facility]) [address] [place], [address], 03/13/2025 18:05:47 03/12/20 25 03/13/2025 BASIC METAB OLIC PANEL (8) eGFR 88 mL/mi n/1.7 3 >59 normal Not Available [facility] ([facility]) [address] [place], [address], 03/13/2025 18:05:47 03/12/20 25 03/13/2025 BASIC METAB OLIC PANEL (8) BUN/creatini ne ratio 19 9-23 normal Not Available [facility] ([facility]) [address] [place], [address], 03/13/2025 18:05:47 03/12/20 25 03/13/2025 BASIC METAB OLIC PANEL (8) carbon dioxide, total 20 mmol/ L 20-29 normal Not Available [facility] ([facility]) [address] [place], [address], 03/13/2025 18:05:47 03/12/20 25 03/13/2025 BASIC METAB OLIC PANEL (8) calcium 9.3 mg/dL 8.7-10 .2 normal Not Available [facility] ([facility]) [address] [place], [address], 03/13/2025 18:05:47 03/12/20 25 03/13/2025 LIPID PANEL cholesterol, total 219 mg/dL 100-19 9 above high normal Not Available [facility] ([facility]) [address] [place], [address], 03/13/2025 18:05:48 03/12/20 25 03/13/2025 LIPID PANEL triglyceride s 100 mg/dL 0-149 normal Not Available [facility] ([facility]) [address] [place], [address], 03/13/2025 18:05:48 03/12/20 25 03/13/2025 LIPID PANEL HDL cholesterol 53 mg/dL >39 normal Not Available [facility] ([facility]) [address] [place], [address], 03/13/2025 18:05:48 03/12/20 25 03/13/2025 LIPID PANEL VLDL cholesterol katia 18 mg/dL 5-40 Not Available [facility] ([facility]) [address] [place], [address], 03/13/2025 18:05:48 03/12/20 25 03/13/2025 LIPID PANEL LDL chol calc ([facility]) 148 mg/dL 0-99 above high normal Not Available [facility] ([facility]) [address] [place], [address], 03/13/2025 18:05:48 03/12/20 25 03/13/2025 LIPID PANEL LDL calc comment: ORDER SELECTOR Not Available [facility] ([facility]) [address] [place], [address], 03/13/2025 18:05:48 03/12/20 25 03/13/2025 IRON AND TIBC iron bind.cap.(TI BC) 280 ug/dL 250-45 0 normal Not Available [facility] ([facility]) [address] [place], [address], 03/13/2025 18:05:48 03/12/20 25 03/13/2025 IRON AND TIBC UIBC 199 ug/dL 131-42 5 normal Not Available [facility] ([facility]) [address] [place], [address], 03/13/2025 18:05:48 03/12/20 25 03/13/2025 IRON AND TIBC iron 81 ug/dL 27-159 normal Not Available [facility] ([facility]) [address] [place], [address], 03/13/2025 18:05:48 03/12/20 25 03/13/2025 IRON AND TIBC iron saturation 29 % 15-55 normal Not Available [facility] ([facility]) [address] [place], [address], 03/13/2025 18:05:48 03/12/20 25 03/13/2025 CHLAM YDIA/ GC AMPLI FICAT ION chlamydia trachomatis, YISSEL Negati ve negati ve Not Available [facility] ([facility]) [address] [place], [address], 03/13/2025 18:05:50 03/12/20 25 03/13/2025 CHLAM YDIA/ GC AMPLI FICAT ION neisseria gonorrhoeae, YISSEL Negati ve negati ve Not Available [facility] ([facility]) [address] [facility], [place], [address], 03/13/2025 18:05:50 03/12/20 25 03/12/2025 T PALLI DUM SHIRIN OXANA CASCA DE interpretati on: Commen t Syphi lis: Trepo nemal Antib odies with Refle x to RPR and RPR Titer , Rever se Shirin daigle and Diagn osis Algor ithm ----- ----- ----- ----- ----- ----- ----- ----- ----- ----- ----- ----- Trepo nemal Trepo nemal Ab RPR, Qn Ab, TPPA Final Inter preta tion ----- ----- ----- --- ----- ----- ----- ----- ----- ----- --- Non N/A N/A No labor atory evide nce React dayton of syphi lis. Retes t in 2-4 weeks if recen t expos ure is suspe cted. ----- ----- ----- --- ----- ----- ----- ----- ----- ----- --- React dayton Non Non Trepo nemal antib odies React dayton React dayton not confi rmed. Incon clusi ve for syphi lis; poten tial early syphi lis, possi ble false posit dayton. Retes t in 2-4 weeks if recen t expos ure is suspe cted. ----- ----- ----- --- ----- ----- ----- ----- ----- ----- --- React dayton Non React dayton Trepo nemal antib odies React dayton detec bandar. Consi stent with past or curre nt (pote ntial early ) syphi lis. ----- ----- ----- --- ----- ----- ----- ----- ----- ----- --- React dayton >/=1: 1 N/A Trepo nemal and nontr epone mal antib odies detec bandar. Consi stent with curre nt or past syphi lis. Not Available [facility] ([facility]) [address] [facility], [place], [address], 03/13/2025 18:05:50 03/12/20 25 03/13/2025 T PALLI DUM SCREE OXANA CASCA DE T pallidum antibodies Non Reacti ve non reacti ve Not Available [facility] ([facility]) [address] [facility], [place], [address], 03/13/2025 18:05:50 03/12/20 25 03/13/2025 HCV ANTIB BONNIE RFX TO QUANT PCR HCV Ab Non Reacti ve non reacti ve Not Available [facility] ([facility]) [address] [place], [address], 03/13/2025 18:05:51 03/12/20 25 03/13/2025 HCV ANTIB BONNIE RFX TO QUANT PCR interpretati on: Commen t Not infec bandar with HCV unles s early or acute infec tion is suspe cted (whic h may be delay ed in an immun ocomp romis ed indiv idual ), or other evide nce exist s to indic ate HCV infec tion. Not Available [facility] ([facility]) [address] [facility], [place], [address], 03/13/2025 18:05:51 03/12/20 25 03/13/2025 HIV AB/P2 4 AG WITH REFLE X HIV Ab/P24 Ag screen Non Reacti ve non reacti ve HIV-1 /HIV- 2 antib odies and HIV-1 p24 antig en were NOT detec bandar. There is no labor atory evide nce of HIV infec tion. HIV Negat dayton Not Available [facility] ([facility]) [address] [place], [address], 03/13/2025 18:05:51 03/12/20 25 03/13/2025 TSH RFX ON ABNOR MAL TO FREE T4 TSH 2.420 uIU/m L 0.450- 4.500 normal Not Available [facility] ([facility]) [address] [place], [address], 03/13/2025 18:05:52 03/12/20 25 03/13/2025 ALVARO TIN ferritin 109 NG/mL 15-150 normal Not Available [facility] ([facility]) [address] [place], [address], 03/13/2025 18:05:53 03/12/20 25 03/12/2025 RETIC ULOCY TE COUNT reticulocyte count 1.0 % 0.6-2. 6 Not Available [facility] ([facility]) [address] [place], [address], 03/13/2025 18:05:54 08/22/20 24 08/22/2024 CT, chest , w/o contr ast CT Chest W/O Contra st INDICA TION: Reason : R91.1; follow -up pulmon michael nodule . Clinic al Questi on(s): Other: TECHNI QUE: Helica l CT scan of the chest withou t IV contra st, format bandar in 3 planes . Weight -based protoc ol was perfor med using automa tic exposu re contro l. COMPAR EMILIA: CT angiog jovany chest 02/06/20 FINDIN GS: Needle Molder view findin gs, lines and tubes: None. Trache a and airway s: Patent withou t eviden ce of trache al or endobr onchia l lesion . Lungs and pleura : 7 x 8 x 6 nodule in the medial right lower lobe (74/3) , previo usly approx imatel y 7 x 8 x 6 mm when measur ed simila rly. Puncta te micron odule in the left lung apex is unchan ged (20/12) . No new or enlarg ing nodule . No effusi on or pneumo thorax . Medias tinum and brandon: No mass or hemato ma. No medias tinal or hilar lympha denopa thy. No esopha geal abnorm ality. Partia lly imaged thyroi d is unrema rkable . Heart: Heart is normal in size. No perica rdial effusi on. No kramer ry arteri al calcif icatio ns. Aorta: No aortic aneury sm. Pulmon michael arteri es: Normal calibe r. Chest wall soft tissue s: No acute abnorm ality. Diaphr agm: Intact . Upper abdome n: No signif icant abnorm ality. Bones: No acute abnorm ality. IMPRES DIANNA: No interv al change in the medial right lower lobe nodule measur es approx imatel y 7 x 8 x 6 mm. If low risk for malign sandra, consid er follow -up CT at 18-24 months from the first examin ation. If unchan ged no furthe r follow -up. If high risk for malign sandra, recomm end CT at 18-24 months from the first examin ation and if unchan ged no furthe r follow up per Guidel girish for Manage ment of Incide ntal Pulmon michael Nodule s Detect ed on CT Images : From the [employer] y 2017. WSN: [id number] Orderi ng Physic vick: Te Baird ie Dictat ed By: Tereso Menezes MD Dictat ed Date/T noelle: 4:32 pm Review ed By: Tereso Menezes MD Signed By: Tereso Menezes MD Signed Date/T noelle: 4:32 pm Transc ribed By: CSB Transc ribed Date/T noelle: 4:16 pm Patien t Class: Outpat ient ARTIS [facility] (Outpt Imaging) [address] , [place], [address], 08/29/2024 23:07:07 10/10/19 25 10/10/2024 MAMMO , scree oxana, digit al, bilat eral PROCED URE: MM Digita l Mammo Screen ing INDICA TION: Screen ing for breast cancer . No known palpab le abnorm alitie s. COMPAR EMILIA: [facility] dating back to 2020. TECHNI QUE: Full-f ield digita l CC and MLO 3D tomosy nthesi s images of both breast s were acquir ed. Comput er-aid ed detect ion (CAD) was utiliz ed in the interp retati on of this study. DENSIT Y: There are scatte red areas of fibrog landul ar densit y. FINDIN GS: No suspic ious masses , suspic ious microc alcifi cation s, or areas of poonam ectura l distor tion are seen in either breast to sugges t malign sandra. Stable small intram ammary lymph node in the subare olar left breast . IMPRES DIANNA: No mammog raphic eviden ce of malign sandra. RECOMM ENDATI ON: Annual mammog raphic screen ing BI-RAD S: 2 (Benig n) Lay letter mailed to petra salcido WSN: [id number] Orderi ng Physic vick: Te Baird Dictat ed By: Viviana Bailey MD, I Dictat ed Date/T noelle: 11:06 am Review ed By: Viviana Bailey MD, I Signed By: Viviana Bailey MD, I Signed Date/T noelle: 11:06 am Transc ribed By: RUSH Transc riptio n Date/T noelle: 11:03 am Birads : Patinelsy t Class: Outpat ient [id number] [facility] (Outpt Imaging) [address] , [place], [address], 10/11/2024 10:05:56 10/10/1910/10/2024 MAMMO , scree oxana, digit al, bilat eral No observ ation record ed. 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 COMPAR EMILIA: 018. FINDIN GS: RIGHT THYROI D LOBE: 5.5 x 1.8 x 2.3 cm, volume 11.9 cc. Normal homoge neous echote xture. Diffus rosa increa sed parenc hymal vascul arity. Scatte red subcen timete r nodule s, includ ing a 0.8 cm nodule isolat ed for measur ement in the lower pole, which do not meet TI-RAD S criter ia for imagin g follow -up. LEFT THYROI D LOBE: 5.4 x 1.7 x 2.3 cm, volume 11.1 cc. Normal homoge neous echote xture. Diffus rosa increa sed parenc hymal vascul arity. Scatte red subcen timete r nodule s which do not meet TI-RAD S criter ia for imagin g follow -up. ISTHMU S: Thickn ess: 0.3 cm. IMPRES DIANNA: Scatte red subcen timete r nodule s which do not meet TI-RAD S criter ia for imagin g follow -up. Increa sed parenc hymal vascul arity may reflec t thyroi ditis. WSN: [id number] Orderi ng Physic vick: Te Baird Dictat ed By: Tereso Lazaro MD Dictat ed Date/T noelle: 5:32 pm Review ed By: Tereso Lazaro MD Signed By: Tereso Lazaro MD Signed Date/T noelle: 5:32 pm Transc ribed By: RUSH Transc ribed Date/T noelle: 4:44 pm Patien t Class: Outpat ient [facility] (Outpt Imaging) [address] , [place], [address], 03/13/2025 11:35:45 Result Notes Documentation Provider Name and Address Organization Details Recorded Time Ct, Chest, W/o Contrast : CT Chest W/O Contrast INDICATION: Reason: R91.1; follow-up pulmonary nodule. Clinical Question(s): Other: TECHNIQUE: Helical CT scan of the chest without IV contrast, formatted in 3 planes. Weight-based protocol was performed using automatic exposure control. COMPARISON: CT angiogram chest 02/06/2024 FINDINGS: Needle Molder view findings, lines and tubes: None. Trachea and airways: Patent without evidence of tracheal or endobronchial lesion. Lungs and pleura: 7 x 8 x 6 nodule in the medial right lower lobe (74/3), previously approximately 7 x 8 x 6 mm when measured similarly. Punctate micronodule in the left lung apex is unchanged (19/3). No new or enlarging nodule. No effusion or pneumothorax. Mediastinum and brandon: No mass or hematoma. No mediastinal or hilar lymphadenopathy. No esophageal abnormality. Partially imaged thyroid is unremarkable. Heart: Heart is normal in size. No pericardial effusion. No coronary arterial calcifications. Aorta: No aortic aneurysm. Pulmonary arteries: Normal caliber. Chest wall soft tissues: No acute abnormality. Diaphragm: Intact. Upper abdomen: No significant abnormality. Bones: No acute abnormality. IMPRESSION: No interval change in the medial right lower lobe nodule measures approximately 7 x 8 x 6 mm. If low risk for malignancy, consider follow-up CT at 18-24 months from the first examination. If unchanged no further follow-up. If high risk for malignancy, recommend CT at 18-24 months from the first examination and if unchanged no further followup per Guidelines for Management of Incidental Pulmonary Nodules Detected on CT Images: From the [employer] 2017. WSN: [id number] Ordering Physician: Kristen Mendez Dictated By: Tereso Menezes MD Dictated Date/Time: 08/22/24 4:32 pm Reviewed By: Tereso Menezes MD Signed By: Tereso Menezes MD Signed Date/Time: 08/22/24 4:32 pm Transcribed By: RUSH Transcribed Date/Time: 08/22/24 4:16 pm Patient Class: Outpatient KRISTEN MENDEZ MD [address], [place], [address], [facility] 08/23/2024 08:10:37 Mammo, Screening, Digital, Bilateral : PROCEDURE: MM Digital Mammo Screening INDICATION: Screening for breast cancer. No known palpable abnormalities. COMPARISON: [facility] dating back to 07/24/2021. TECHNIQUE: Full-field digital CC and MLO 3D tomosynthesis images of both breasts were acquired. Computer-aided detection (CAD) was utilized in the interpretation of this study. DENSITY: There are scattered areas of fibroglandular density. FINDINGS: No suspicious masses, suspicious microcalcifications, or areas of architectural distortion are seen in either breast to suggest malignancy. Stable small intramammary lymph node in the subareolar left breast. IMPRESSION: No mammographic evidence of malignancy. RECOMMENDATION: Annual mammographic screening BI-RADS: 2 (Benign) Lay letter mailed to patient WSN: [id number] Ordering Physician: Kristen Mendez Dictated By: Viviana Bailey MD, I Dictated Date/Time: 10/10/24 11:06 am Reviewed By: Viviana Bailey MD, I Signed By: Viviana Bailey MD, I Signed Date/Time: 10/10/24 11:06 am Transcribed By: RUSH Environmental Protection Geologist Date/Time: 10/10/24 11:03 am Birads: Patient Class: Outpatient Constanza Blackman odilia [facility] 10/11/2024 10:05:56 Problems Name Problem SNOMED Code Status Onset Date Resolution Date Notes Provider Name and Address Organization Details Recorded Time Dysfunct ional uterine bleeding Completed 09/22/2017 MARTHA Luna [facility] 7 13:31:19 Constipa tion [id number] Completed 09/22/2017 MARTHA Luna [facility] 7 13:31:16 Dysmenor jerrod [id number] Completed 09/22/2017 MARTHA Luna [facility] 7 13:31:25 Acute pharyngi tis 021124620 Completed 200804/17/2014 RECORDED 11/01/19 09 10:21AM BY NICKI BA MA, ANNOTRAMIREZ ON/ADDEN DUM Not Available [facility] 4 13:37:59 Screenin g for malignan t neoplasm of breast Completed 200804/17/2014 RECORDED 11/01/19 09 10:21AM BY NICKI BA MA, ANNOTATI ON/ADDEN DUM Not Available [facility] 4 13:38:00 Chest pain [id number] Completed 200804/17/2014 RECORDED 11/01/19 09 10:21AM BY NICKI BA MA, ANNOTATI ON/ADDEN DUM Not Available [facility] 4 13:38:00 Infectiv e hepatiti s immuniza tion Completed 200804/17/2014 RECORDED 11/01/19 09 10:21AM BY NICKI BA MA, ANNOTRAMIREZ ON/ADDEN DUM Not Available [facility] 4 13:38:01 Administ ration of measles and mumps and rubella vaccine Completed 200804/17/2014 RECORDED 11/01/19 09 10:21AM BY NICKI BA MA, PINKY ON/ADDEN DUM Not Available [facility] 4 13:38:01 Acute pharyngi tis 825811283 Completed 200805/10/2014 RECORDED 11/01/19 09 10:21AM BY NICKI BA MA, PINKY ON/ADDEN DUM Not Available [facility] 4 12:08:39 Screenin g for malignan t neoplasm of breast Completed 200805/10/2014 RECORDED 11/01/19 09 10:21AM BY NICKI BA MA, PINKY ON/ADDEN DUM Not Available [facility] 4 12:08:40 Chest pain 08074880 Completed 200805/10/2014 RECORDED 11/01/19 09 10:21AM BY NICKI BA MA, ANNOTATI ON/ADDEN DUM Not Available [facility] 4 12:08:40 Infectiv e hepatiti s immuniza tion Completed 200805/10/2014 RECORDED 11/01/19 09 10:21AM BY NICKI BA MA, ANNOTATI ON/ADDEN DUM Not Available [facility] 4 12:08:41 Administ ration of measles and mumps and rubella vaccine Completed 200805/10/2014 RECORDED 11/01/19 09 10:21AM BY NICKI BA MA, ANNOTATI ON/ADDEN DUM Not Available [facility] 4 12:08:41 Acute pharyngi tis 307060013 Completed 200805/11/2014 RECORDED 11/01/19 09 10:21AM BY NICKI BA MA, ANNOTATI ON/ADDEN DUM Not Available [facility] 4 03:31:30 Screenin g for malignan t neoplasm of breast Completed 200805/11/2014 RECORDED 11/01/19 09 10:21AM BY NICKI BA MA, ANNOTATI ON/ADDEN DUM Not Available [facility] 4 03:31:30 Chest pain 69409093 Completed 200805/11/2014 RECORDED 11/01/19 09 10:21AM BY NICKI BA MA, ANNOTATI ON/ADDEN DUM Not Available [facility] 4 03:31:30 Infectiv e hepatiti s immuniza tion Completed 200805/11/2014 RECORDED 11/01/19 09 10:21AM BY NICKI BA MA, ANNOTATI ON/ADDEN DUM Not Available [facility] 4 03:31:30 Administ ration of measles and mumps and rubella vaccine Completed 200805/11/2014 RECORDED 11/01/19 09 10:21AM BY NICKI BA MA, ANNOTATI ON/ADDEN DUM Not Available [facility] 4 03:31:30 Abdomina l tenderne [id number] Completed 201104/17/2014 RECORDED 06/29/20 12 9:58AM BY NICKI BA MA, PINKY ON/ADDEN DUM Not Available [facility] 4 13:37:59 Clinical finding Completed 201104/17/2014 RECORDED 06/29/20 12 9:58AM BY NICKI BA MA, PINKY ON/ADDEN DUM Not Available [facility] 4 13:37:59 Amenorrh ea 72873090 Completed 201104/17/2014 RECORDED 06/29/20 12 9:58AM BY NICKI BA MA, PINKY ON/ADDEN DUM Not Available [facility] 4 13:37:59 Acute sinusiti s 74188504 Completed 201104/17/2014 RECORDED 06/29/20 12 9:58AM BY NICKI BA MA, PINKY ON/ADDEN DUM Not Available [facility] 4 13:37:59 Screenin g for malignan t neoplasm of cervix Completed 201104/17/2014 RECORDED 06/29/20 12 9:57AM BY NICKI BA MA, PINKY ON/ADDEN DUM Not Available [facility] 4 13:38:00 Dysuria 37276487 Completed 201104/17/2014 RECORDED 06/29/20 12 9:58AM BY NICKI BA MA, PINKY ON/ADDEN DUM Not Available [facility] 4 13:38:00 General examinat ion of patient Completed 201104/17/2014 RECORDED 06/29/20 12 9:58AM BY NICKI BA MA, PINKY ON/ADDEN DUM Not Available [facility] 4 13:38:00 Well child [id number] Completed 201104/17/2014 RECORDED 06/29/20 12 9:58AM BY NICKI BA MA, ANNOTATI ON/ADDEN DUM Not Available [facility] 4 13:38:01 Headache 69970008 Completed 201104/17/2014 RECORDED 06/29/20 12 9:57AM BY NICKI BA MA, ANNOTATI ON/ADDEN DUM Not Available [facility] 4 13:38:01 Eruption [id number] Completed 201104/17/2014 IMPRESSI ON: LOOKS LIKE SCABIES, TX WITH ELIMITE, HIRAM CALLING IT IN, INSTRUCT IONS ABOUT CLEANING SHEETS.; RECORDED 06/29/20 12 9:57AM BY NICKI BA MA, PINKY ON/ADDEN DUM Not Available [facility] 4 13:38:01 Hemorrha ge of rectum and anus 103681372 Completed 201104/17/2014 RECORDED 06/29/20 12 9:58AM BY NICKI BA MA, ANNOTRAMIREZ ON/ADDEN DUM Not Available [facility] 4 13:38:01 Chronic sinusiti s 12829788 Completed 201104/17/2014 RECORDED 06/29/20 12 9:58AM BY NICKI BA MA, ANNOTATI ON/ADDEN DUM Not Available [facility] 4 13:38:02 Trichomo nal vulvovag initis 17470667 Completed 201104/17/2014 RECORDED 06/29/20 12 9:57AM BY NICKI BA MA, DEBORAHATI ON/ADDEN DUM Not Available [facility] 4 13:38:02 Vaginiti s and vulvovag initis Completed 201104/17/2014 IMPRESSI ON: SOME ITCHING CHECK FOR INFECTIO N; RECORDED 06/29/20 12 9:58AM BY NICKI BA MA, ANNOTATI ON/ADDEN DUM Not Available [facility] 4 13:38:02 Abdomina l tenderne ss [id number] Completed 201105/10/2014 RECORDED 06/29/20 12 9:58AM BY NICKI BA MA, ANNOTATI ON/ADDEN DUM Not Available [facility] 4 12:08:39 Clinical finding Completed 201105/10/2014 RECORDED 06/29/20 12 9:58AM BY NICKI BA MA, ANNOTATI ON/ADDEN DUM Not Available [facility] 4 12:08:39 Amenorrh ea 13817476 Completed 201105/10/2014 RECORDED 06/29/20 12 9:58AM BY NICKI BA MA, ANNOTATI ON/ADDEN DUM Not Available [facility] 4 12:08:39 Acute sinusiti s 69006727 Completed 201105/10/2014 RECORDED 06/29/20 12 9:58AM BY NICKI BA MA, ANNOTATI ON/ADDEN DUM Not Available [facility] 4 12:08:39 Screenin g for malignan t neoplasm of cervix Completed 201105/10/2014 RECORDED 06/29/20 12 9:57AM BY NICKI BA MA, ANNOTATI ON/ADDEN DUM Not Available [facility] 4 12:08:40 Dysuria [id number] Completed 201105/10/2014 RECORDED 06/29/20 12 9:58AM BY NICKI BA MA, ANNOTATI ON/ADDEN DUM Not Available [facility] 4 12:08:40 General examinat ion of patient Completed 201105/10/2014 RECORDED 06/29/20 12 9:58AM BY NICKI BA MA, ANNOTATI ON/ADDEN DUM Not Available [facility] 4 12:08:40 Well child [id number] Completed 201105/10/2014 RECORDED 06/29/20 12 9:58AM BY NICKI BA MA, ANNOTATI ON/ADDEN DUM Not Available [facility] 4 12:08:40 Headache 78006462 Completed 201105/10/2014 RECORDED 06/29/20 12 9:57AM BY NICKI BA MA, ANNOTATI ON/ADDEN DUM Not Available [facility] 4 12:08:40 Eruption [id number] Completed 201105/10/2014 IMPRESSI ON: LOOKS LIKE SCABIES, TX WITH ELIMITE, HIRAM CALLING IT IN, INSTRUCT IONS ABOUT CLEANING SHEETS.; RECORDED 06/29/20 12 9:57AM BY NICKI BA MA, PINKY ON/ADDEN DUM Not Available [facility] 4 12:08:41 Hemorrha ge of rectum and anus 394802753 Completed 201105/10/2014 RECORDED 06/29/20 12 9:58AM BY NICKI BA MA, ANNOTATI ON/ADDEN DUM Not Available [facility] 4 12:08:41 Chronic sinusiti s 69895163 Completed 201105/10/2014 RECORDED 06/29/20 12 9:58AM BY NICKI BA MA, ANNOTATI ON/ADDEN DUM Not Available [facility] 4 12:08:41 Trichomo nal vulvovag initis 58559577 Completed 201105/10/2014 RECORDED 06/29/20 12 9:57AM BY NICKI BA MA, ANNOTATI ON/ADDEN DUM Not Available [facility] 4 12:08:41 Vaginiti s and vulvovag initis Completed 201105/10/2014 IMPRESSI ON: SOME ITCHING CHECK FOR INFECTIO N; RECORDED 06/29/20 12 9:58AM BY NICKI BA MA, PINKY ON/ADDEN DUM Not Available [facility] [facility] 12:08:41 Abdomina l tenderne ss [id number] Completed 201105/11/2014 RECORDED 06/29/20 12 9:58AM BY NICKI BA MA, ANNOTRAMIREZ ON/ADDEN DUM Not Available [facility] 4 03:31:30 Clinical finding Completed 201105/11/2014 RECORDED 06/29/20 12 9:58AM BY NICKI BA MA, ANNOTRAMIREZ ON/ADDEN DUM Not Available [facility] 4 03:31:30 Amenorrh ea [id number] Completed 201105/11/2014 RECORDED 06/29/20 12 9:58AM BY NICKI BA MA, ANNOTATI ON/ADDEN DUM Not Available [facility] 4 03:31:30 Acute sinusiti s [id number] Completed 201105/11/2014 RECORDED 06/29/20 12 9:58AM BY NICKI BA MA, PINKY ON/ADDEN DUM Not Available [facility] 4 03:31:30 Screenin g for malignan t neoplasm of cervix Completed 201105/11/2014 RECORDED 06/29/20 12 9:57AM BY NICKI BA MA, ANNOTRAMIREZ ON/ADDEN DUM Not Available [facility] 4 03:31:30 Dysuria [id number] Completed 201105/11/2014 RECORDED 06/29/20 12 9:58AM BY NICKI BA MA, ANNOTRAMIREZ ON/ADDEN DUM Not Available [facility] 4 03:31:30 General examinat ion of patient Completed 201105/11/2014 RECORDED 06/29/20 12 9:58AM BY NICKI BA MA, ANNOTRAMIREZ ON/ADDEN DUM Not Available [facility] 4 03:31:30 Well child [id number] Completed 201105/11/2014 RECORDED 06/29/20 12 9:58AM BY NICKI BA MA, ANNOTRAMIREZ ON/ADDEN DUM Not Available [facility] 4 03:31:30 Headache [id number] Completed 201105/11/2014 RECORDED 06/29/20 12 9:57AM BY NICKI BA MA, ANNOTATI ON/ADDEN DUM Not Available [facility] 4 03:31:30 Eruption [id number] Completed 201105/11/2014 IMPRESSI ON: LOOKS LIKE SCABIES, TX WITH ELIMITE, HIRAM CALLING IT IN, INSTRUCT IONS ABOUT CLEANING SHEETS.; RECORDED 06/29/20 12 9:57AM BY NICKI BA MA, DEBORAHATI ON/ADDEN DUM Not Available [facility] 4 03:31:30 Hemorrha ge of rectum and anus [id number] Completed 201105/11/2014 RECORDED 06/29/20 12 9:58AM BY NICKI BA MA, DEBORAHATI ON/ADDEN DUM Not Available [facility] 4 03:31:30 Chronic sinusiti s [id number] Completed 201105/11/2014 RECORDED 06/29/20 12 9:58AM BY NICKI BA MA, ANNOTATI ON/ADDEN DUM Not Available [facility] 4 03:31:31 Trichomo nal vulvovag initis [id number] Completed 201105/11/2014 RECORDED 06/29/20 12 9:57AM BY NICKI BA MA, ANNOTATI ON/ADDEN DUM Not Available [facility] 4 03:31:31 Vaginiti s and vulvovag initis Completed 201105/11/2014 IMPRESSI ON: SOME ITCHING CHECK FOR INFECTIO N; RECORDED 06/29/20 12 9:58AM BY NICKI BA MA, ANNOTATI ON/ADDEN DUM Not Available [facility] 4 03:31:31 Asthma [id number] Completed 201104/17/2014 IMPRESSI ON: EXACERBA TION, IMPROVED SINCE ER DISCHARG E 06/13/12 BUT NOT RESOLVED , WILL INITIATE TAPERING COURSE OF PREDNISO NE WITH PCP FU AT COMPLETI ON; RECORDED 07/20/20 12 8:40AM BY MILTON MCDONALD MA, ANNOTATI ON/ADDEN DUM [place] hartley [facility] 1 13:23:07 Renewal of prescrip tion Completed 201104/17/2014 RECORDED 07/20/20 12 8:40AM BY MILTON MCDONALD MA, ANNOTATI ON/ADDEN DUM Not Available [facility] 4 13:38:01 Asthma [id number] Completed 201105/10/2014 IMPRESSI ON: EXACERBA TION, IMPROVED SINCE ER DISCHARG E 06/13/12 BUT NOT RESOLVED , WILL INITIATE TAPERING COURSE OF PREDNISO NE WITH PCP FU AT COMPLETI ON; RECORDED 07/20/20 12 8:40AM BY MILTON MCDONALD MA, ANNOTATI ON/ADDEN DUM [place] hartley [facility] 1 13:23:07 Renewal of prescrip tion Completed 201105/10/2014 RECORDED 07/20/20 12 8:40AM BY MILTON MCDONALD MA, DEBORAHATI ON/ADDEN DUM Not Available [facility] 4 12:08:41 Asthma [id number] Completed 201105/11/2014 IMPRESSI ON: EXACERBA TION, IMPROVED SINCE ER DISCHARG E 06/13/12 BUT NOT RESOLVED , WILL INITIATE TAPERING COURSE OF PREDNISO NE WITH PCP FU AT COMPLETI ON; RECORDED 07/20/20 12 8:40AM BY MILTON MCDONALD MA, ANNOTATI ON/ADDEN DUM [place] hartley [facility] 1 13:23:07 Renewal of prescrip tion Completed 201105/11/2014 RECORDED 07/20/20 12 8:40AM BY MILTON MCDONALD MA, DEBORAHATI ON/ADDEN DUM Not Available [facility] 4 03:31:30 Anemia [id number] Completed 201104/17/2014 RECORDED 08/18/20 12 2:34PM BY PINKY LUNA ON/ADDEN DUM [place] hartley [facility] 7 14:05:12 Acute upper respirat ory infectio n [id number] Completed 201204/17/2014 IMPRESSI ON: VIRAL. OFFICE WILL CALL HER ON WEDNESDAY TO CHECK IN. DO SINUS RINSE, SUDAFED. CONTINUE FLONASE; RECORDED 10/29/19 13 9:41AM BY MILTON MCDONALD MA, ANNOTATI ON/ADDEN DUM Not Available [facility] 4 13:37:59 Patient status finding [id number] Completed 201204/17/2014 RECORDED 10/29/19 13 9:41AM BY MILTON MCDONALD MA, ANNOTATI ON/ADDEN DUM Lynne Walden MA [facility] 7 13:31:13 Acute upper respirat ory infectio n [id number] Completed 201205/10/2014 IMPRESSI ON: VIRAL. OFFICE WILL CALL HER ON WEDNESDAY TO CHECK IN. DO SINUS RINSE, SUDAFED. CONTINUE FLONASE; RECORDED 10/29/19 13 9:41AM BY MILTON MCDONALD MA, ANNOTATI ON/ADDEN DUM Not Available [facility] 4 12:08:39 Acute upper respirat ory infectio n [id number] Completed 201205/11/2014 IMPRESSI ON: VIRAL. OFFICE WILL CALL HER ON WEDNESDAY TO CHECK IN. DO SINUS RINSE, SUDAFED. CONTINUE FLONASE; RECORDED 10/29/19 13 9:41AM BY MILTON MCDONALD MA, ANNOTATI ON/ADDEN DUM Not Available [facility] 4 03:31:30 Cough [id number] Completed 201204/17/2014 RECORDED 12/16/19 13 1:45PM BY MILTON MCDONALD MA, ANNOTATI ON/ADDEN DUM Not Available [facility] 4 13:38:00 Cough [id number] Completed 201205/10/2014 RECORDED 12/16/19 13 1:45PM BY MILTON MCDONALD MA, ANNOTATI ON/ADDEN DUM Not Available [facility] 4 12:08:40 Cough [id number] Completed 201205/11/2014 RECORDED 12/16/19 13 1:45PM BY MILTON MCDONALD MA, ANNOTATI ON/ADDEN DUM Not Available [facility] 4 03:31:30 Pain in limb [id number] Completed 201204/17/2014 IMPRESSI ON: PT WITH APPROX 1 MO OF L NECK, SHOULDER AND ARM PAIN, PROGRESS IVELY WORSE MORE RECENT. INITIALL Y STARTED WITH NEW BOXING REGIMEN, MORE DISTAL THOUGH IN HAND. REVIEWED ER NOTES FROM KWABENATERREYNA Crespo, XRAY REVEALIN G L SUBDELTO ID CALCIFIC BURSITIS . DID HAVE CS INJECTIO N, LITTLE BENEFIT THUS FAR BUT THAT OF COURSE IS NOT SURPRISI NG. PT REASSURE D. I HAVE MORE CONCERN TODAY RE POSSIBLE C7 RADICULO VINOD, HARD TO SAY THOUGH BASED ON HX AND EXAM (VS MORE LOCALIZE D BURSITIS , EPICONDY LITIS). FOR NOW I THINK SHE WOULD BENEFIT FROM PREDNISO NE (FAILED NSAID AND PERCOCET ), MUSCLE RELAXER TO USE AT HOME (AWARE OF SEDATING S/E). RETURN IN TWO WEEKS FOR RE-EVAL. OOW NOTE FOR TODAY AND TOMORROW PROVIDED . CALL US SOONER PRN.; RECORDED 05/06/20 13 9:27AM BY SONIA ADAMES MA, ANNOTATI ON/ADDEN DUM Not Available [facility] 4 13:38:01 Pain in limb [id number] Completed 201205/10/2014 IMPRESSI ON: PT WITH APPROX 1 MO OF L NECK, SHOULDER AND ARM PAIN, PROGRESS IVELY WORSE MORE RECENT. INITIALL Y STARTED WITH NEW BOXING REGIMEN, MORE DISTAL THOUGH IN HAND. REVIEWED ER NOTES FROM ISABEL Crespo, MARIA ELENA REVEALIN G L SUBDELTO ID CALCIFIC BURSITIS . DID HAVE CS INJECTIO N, LITTLE BENEFIT THUS FAR BUT THAT OF COURSE IS NOT SURPRISI NG. PT REASSURE D. I HAVE MORE CONCERN TODAY RE POSSIBLE C7 RADICULO VINOD, HARD TO SAY THOUGH BASED ON HX AND EXAM (VS MORE LOCALIZE D BURSITIS , EPICONDY LITIS). FOR NOW I THINK SHE WOULD BENEFIT FROM PREDNISO NE (FAILED NSAID AND PERCOCET ), MUSCLE RELAXER TO USE AT HOME (AWARE OF SEDATING S/E). RETURN IN TWO WEEKS FOR RE-EVAL. OOW NOTE FOR TODAY AND TOMORROW PROVIDED . CALL US SOONER PRN.; RECORDED 05/06/20 13 9:27AM BY SONIA ADAMES MA, PINKY ON/ADDEN DUM Not Available [facility] 4 12:08:40 Pain in limb [id number] Completed 201205/11/2014 IMPRESSI ON: PT WITH APPROX 1 MO OF L NECK, SHOULDER AND ARM PAIN, PROGRESS IVELY WORSE MORE RECENT. INITIALL Y STARTED WITH NEW BOXING REGIMEN, MORE DISTAL THOUGH IN HAND. REVIEWED ER NOTES FROM ISABEL Y, XRAY REVEALIN G L SUBDELTO ID CALCIFIC BURSITIS . DID HAVE CS INJECTIO N, LITTLE BENEFIT THUS FAR BUT THAT OF COURSE IS NOT SURPRISI NG. PT REASSURE D. I HAVE MORE CONCERN TODAY RE POSSIBLE C7 RADICULO VINOD, HARD TO SAY THOUGH BASED ON HX AND EXAM (VS MORE LOCALIZE D BURSITIS , EPICONDY LITIS). FOR NOW I THINK SHE WOULD BENEFIT FROM PREDNISO NE (FAILED NSAID AND PERCOCET ), MUSCLE RELAXER TO USE AT HOME (AWARE OF SEDATING S/E). RETURN IN TWO WEEKS FOR RE-EVAL. OOW NOTE FOR TODAY AND TOMORROW PROVIDED . CALL US SOONER PRN.; RECORDED 05/06/20 13 9:27AM BY SONIA ADAMES MA, PINKY ON/ADDEN DUM Not Available [facility] 4 03:31:30 Active or passive immuniza tion Completed 201204/17/2014 RECORDED 08/11/20 13 2:55PM BY LYNNE WALDEN, OFFICE VISIT Not Available [facility] 4 13:38:01 Active or passive immuniza tion Completed 201205/10/2014 RECORDED 08/11/20 13 2:55PM BY LYNNE WALDEN, OFFICE VISIT Not Available [facility] 4 12:08:41 Active or passive immuniza tion Completed 201205/11/2014 RECORDED 08/11/20 13 2:55PM BY LYNNE WALDEN, OFFICE VISIT Not Available [facility] 4 03:31:30 Malaise and fatigue [id number] Completed 201204/17/2014 RECORDED 09/29/20 13 7:43AM BY SONIA ADAMES MA, PINKY ON/ADDEN DUM Not Available [facility] 4 13:38:00 Influenz a vaccine needed [id number] 06 Completed 201204/17/2014 IMPRESSI ON: PT EATS EGGS AND HAS NOT PROBLEM, HAS NOT TAKEN FLU SHOT IN THE PAST, A TEEN WAS TOLD HAD EGG ALLERGY BUT STATED EATS EGGS NO PROBLEM, ILL WITH PNEUMONI A, ASTHMA LAST EYAR, PT TO TAKE FLU SHOT; RECORDED 09/29/20 13 7:43AM BY SONIA ADAMES MA, DEBORAHATI ON/ADDEN DUM Not Available [facility] 4 13:38:00 Adult health examinat ion Completed 201204/17/2014 IMPRESSI ON: PT IS DUE FOR MAMMO SHE WILL SET UP APPT, PAP IS UTD, NO ROLE FOR COLONOSC OPY, NEEDS TO EXERCISE ; RECORDED 09/29/20 13 7:43AM BY SONIA ADAMES MA, PINKY ON/ADDEN DUM Not Available [facility] 4 13:38:00 Candidal vulvovag initis [id number] Completed 201204/17/2014 IMPRESSI ON: NO INFECTIO N NOW BUT SHE SAYS THAT SHE GETS YEAST INFECTIO NS WHEN ON ABX; RECORDED 09/29/20 13 7:44AM BY SONIA ADAMES MA, PINKY ON/ADDEN DUM Not Available [facility] 4 13:38:02 Malaise and fatigue [id number] Completed 201205/10/2014 RECORDED 09/29/20 13 7:43AM BY SONIA ADAMES MA, PINKY ON/ADDEN DUM Not Available [facility] 4 12:08:40 Influenz a vaccine needed [id number] 06 Completed 201205/10/2014 IMPRESSI ON: PT EATS EGGS AND HAS NOT PROBLEM, HAS NOT TAKEN FLU SHOT IN THE PAST, A TEEN WAS TOLD HAD EGG ALLERGY BUT STATED EATS EGGS NO PROBLEM, ILL WITH PNEUMONI A, ASTHMA LAST EYAR, PT TO TAKE FLU SHOT; RECORDED 09/29/20 13 7:43AM BY SONIA ADAMES MA, DEBORAHATI ON/ADDEN DUM Not Available [facility] 4 12:08:40 Adult health examinat ion Completed 201205/10/2014 IMPRESSI ON: PT IS DUE FOR MAMMO SHE WILL SET UP APPT, PAP IS UTD, NO ROLE FOR COLONOSC OPY, NEEDS TO EXERCISE ; RECORDED 09/29/20 13 7:43AM BY SONIA ADAMES MA, ANNOTATI ON/ADDEN DUM Not Available [facility] 4 12:08:40 Candidal vulvovag initis [id number] Completed 201205/10/2014 IMPRESSI ON: NO INFECTIO N NOW BUT SHE SAYS THAT SHE GETS YEAST INFECTIO NS WHEN ON ABX; RECORDED 09/29/20 13 7:44AM BY SONIA ADAMES MA, ANNOTATI ON/ADDEN DUM Not Available [facility] 4 12:08:41 Malaise and fatigue [id number] Completed 201205/11/2014 RECORDED 09/29/20 13 7:43AM BY SONIA ADAMES MA, ANNOTATI ON/ADDEN DUM Not Available [facility] 4 03:31:30 Influenz a vaccine needed [id number] 06 Completed 201205/11/2014 IMPRESSI ON: PT EATS EGGS AND HAS NOT PROBLEM, HAS NOT TAKEN FLU SHOT IN THE PAST, A TEEN WAS TOLD HAD EGG ALLERGY BUT STATED EATS EGGS NO PROBLEM, ILL WITH PNEUMONI A, ASTHMA LAST EYAR, PT TO TAKE FLU SHOT; RECORDED 09/29/20 13 7:43AM BY SONIA ADAMES MA, ANNOTATI ON/ADDEN DUM Not Available [facility] 4 03:31:30 Adult health examinat ion Completed 201205/11/2014 IMPRESSI ON: PT IS DUE FOR MAMMO SHE WILL SET UP APPT, PAP IS UTD, NO ROLE FOR COLONOSC OPY, NEEDS TO EXERCISE ; RECORDED 09/29/20 13 7:43AM BY SONIA ADAMES MA, ANNOTATI ON/ADDEN DUM Not Available [facility] 4 03:31:30 Candidal vulvovag initis [id number] Completed 201205/11/2014 IMPRESSI ON: NO INFECTIO N NOW BUT SHE SAYS THAT SHE GETS YEAST INFECTIO NS WHEN ON ABX; RECORDED 09/29/20 13 7:44AM BY SONIA ADAMES MA, PINKY ON/ADDEN DUM Not Available [facility] 4 03:31:31 Allergic rhinitis [id number] Active 2013 MARTHA Maurice, [facility] 8 11:38:04 Anemia [id number] Completed 201309/22/2017 IMPRESSI ON: CHRONIC FROM MENSTRUA L BLOOD LOSS, RECHECK LABS AND OCNTINUE IRON, IF NL CBC ADN IRON REDUCE IRON TO ONCE A DAY; RECORDED 12/29/19 14 9:45AM BY ANGELES Abdi MD, OFFICE VISIT [place] hartley [facility] 7 14:05:12 Patient status finding [id number] Completed 201309/22/2017 RECORDED 12/29/19 14 8:44AM BY LYNNE WALDEN, OFFICE VISIT MARTHA Luna, [facility] 7 13:31:13 Intrinsi c asthma [id number] Completed 201309/22/2017 IMPRESSI ON: PT NEEDS TO USE ADVAIR BID AND GET BETTER CONTROL SO CAN EXERCISE OUTSIDE, SHE DOES NOT LIKE SPIRIVA. 3 MONTH FOLLOWUP ; RECORDED 12/29/19 14 9:46AM BY ANGELES Abdi MD, OFFICE VISIT [place] hartley [facility] 7 14:05:05 Acute asthma [id number] Completed 201309/22/2017 IMPRESSI ON: PT NOTES FOR 3 DAYS SHE CAUGHT A COLD AND IS WHEEZING FOR THE PAST DAY. PT FEELS LIEK SHE NEEDS PREDNISO NE, WILL GIVE HER 40MG A DAY, IF SHE IS NOT IMPROVIN G BY LATER TOMORROW SHE WILL GET SEEN HERE OR AT URGENT CARE; RECORDED 12/29/19 14 8:44AM BY LYNNE WALDEN, OFFICE VISIT [place] hartley [facility] 7 14:05:14 Asthma [id number] Completed 201307/20/2019 [place] hartley [facility] 1 13:23:07 Pure hypercho lesterol emia [id number] Completed 201309/22/2017 RECORDED 12/29/19 14 8:44AM BY LYNNE WALDEN, OFFICE VISIT [place] hartley [facility] 7 14:05:39 Iron deficien cy anemia secondar y to inadequa te dietary iron intake [id number] Completed 201309/22/2017 IMPRESSI ON: HX OF ANEMIA, NOT ON IRON, HEAVY MENSES WILL CHECK CBC; RECORDED 12/29/19 14 8:44AM BY LYNNE WALDEN, OFFICE VISIT [place] hartley [facility] 7 14:05:18 Shoulder joint pain [id number] Completed 201309/22/2017 IMPRESSI ON: FINALLY BETTER; RECORDED 12/29/19 14 8:44AM BY LYNNE WALDEN, OFFICE VISIT [place] hartley [facility] 7 14:05:08 Peripher al vertigo [id number] Completed 201309/22/2017 RECORDED 12/29/19 14 8:44AM BY LYNNE WALDEN, OFFICE VISIT [place] hartley [facility] 7 14:05:21 Anemia due to unknown mechanis m [id number] Completed 201907/09/2021 Angeles hartley [facility] 13:24:54 SARS-CoV -2 Completed 201907/09/2021 Angeles hartley [facility] 13:24:45 Asthma [id number] Completed 202001/10/2021 Angeles hartley [facility] 1 13:23:07 Moderate persiste nt asthma [id number] Active 2020 Angeles Johnny parrish null, [facility] 1 13:24:03 Eosinoph il count above referenc e range 730073850 Active 2022 Alfredito Young MD [address], [place], [address] , [facility] 3 16:57:07 Hyperlip idemia 33612169 Active 2022 KRISTEN MENDEZ MD [address], [place], [address] , [facility] 3 09:24:07 Obesity 190249128 Active 2022 Addie hartley, [facility] 3 11:19:32 Bilatera l hearing loss 38968791 Active 2022 Addie Viera null, [facility] 3 11:19:56 Solitary nodule of lung 648727309 Active 2023 Malini Parrish PA-C [address], [place], [address] , [facility] 4 09:18:13 Strain of back muscle 648196104 Active 2024 Laura Morris null, [facility] 5 16:30:51 Problem Notes None recorded. Procedures Surgical History Date Name Laterality Status Provider Name and Address Organization Details Recorded Time 10/10/19 25 Most Recent Mammogram completed Constanza Blackman [facility] 10/11/2024 10:05:53 09/16/20 23 Colonoscopy completed Constanza Blackman [facility] 09/16/2023 08:42:24 07/24/20 21 Mammogram screening completed Janie Resendiz [facility] 10/01/2021 11:25:56 12/10/19 21 Date of Last Pap Smear completed Samaria Morales [facility] 12/11/2020 15:57:47 07/22/20 18 Date of Last Colonoscopy completed Lynne Walden MA [facility] 01/10/2021 13:11:02 05/06/19 99 Tubal Ligation completed Lynne Walden MA [facility] 02/06/2022 15:00:57 06/04/19 78 Tonsillectomy completed Lynne Walden MA [facility] 02/06/2022 15:00:57 Tonsillectomy completed Lynne amanda MA [facility] 02/06/2022 15:00:57 Tubal Ligation completed Lynne atkinson MA [facility] 02/06/2022 15:00:57 Imaging Results None recorded. Procedure Notes None recorded. Medical Equipment None Reported. Allergies Allergen ID Allergen Name Allergen Category Reaction Reaction Severity Criticality Documentation Date Start Date Code Code System Note Provider Name and Address Organization Details Recorded Time 06072 peach food rash Not available Not available 02/17/2023 MARTHA Hernandez [facility] 3 08:36:43 53097 pear preparati on food rash Not available Not available 02/17/2023 10383 25 RxNorm MARTHA Hernandez [facility] 3 08:36:51 31941 Tezspire medicatio n rash Not available Not available 11/15/2024 78692 96 RxNorm MARTHA Valle [facility] 5 16:00:57 Medications Name Sig Start Date Stop Date Status Note LastModified by Organization Details LastModified Time cyclobenz aprine 10 mg tablet TAKE 1 TABLET 3 TIMES A DAY BY ORAL ROUTE. 08/04 completed Not Available Not Available Not Available prednison e 10 mg tablet PLEASE SEE ATTACHED FOR DETAILED DIRECTIO NS 11/15 completed Not Available Not Available Not Available Iron (ferrous sulfate) 325 mg (65 mg iron) tablet Take 1 tablet every day by oral route as needed. 01/10 completed Not Available Not Available Not Available azithromy tila 250 mg tablet TAKE 2 TABLETS BY MOUTH TODAY, THEN TAKE 1 TABLET DAILY FOR 4 DAYS 10/08 completed Not Available Not Available Not Available nystatin 100,000 unit/gram topical ointment BID 03/26 completed RECORDED 03/26/20 10 5:18PM BY PINKY SONI/BINDU PEACOCK; Not Available Not Available Not Available fluconazo le 150 mg tablet Take 1 tablet every day by oral route for 2 days. 11/24 completed Not Available Not Available Not Available Nystop 100,000 unit/gram topical powder APPLY TO AFFECTED AREA TWICE A DAY FOR 10 DAYS active Not Available Not Available No t Available meloxicam 15 mg tablet TAKE 1 TABLET BY MOUTH EVERY DAY 08/04 completed Not Available Not Available Not Available metronida zole 0.75 % (37.5 mg/5 gram) vaginal gel Insert 1 applicat orful every day by vaginal route at bedtime for 5 days. 11/24 completed Not Available Not Available Not Available prednison e 20 mg tablet Take 2 tablets every day by oral route for 5 days. 02/17 completed Not Available Not Available Not Available prednison e 5 mg tablet DIRECTED FOR 14 DAYS 07/27 completed Not Available Not Available Not Available permethri n 5 % topical cream 09/22 completed Not Available Not Available Not Available Advair Diskus 100 mcg-50 mcg/dose powder for inhalatio n TAKE 1 PUFF BY MOUTH TWICE A DAY 07/27 completed Not Available Not Available Not Available ciclopiro x 8 % topical solution APPLY TO THE AFFECTED AREA(S) TOPICALL Y ONCE DAILY PREFERAB LY AT BEDTIME OR 8 HOURS BEFORE WASHING active Not Available Not Available No t Available terbinafi ne HCl 250 mg tablet active Not Available Not Available Not Available Fluticaso ne Propionat e (Inhal) 50 mcg/BLIST inhl powd EACH NOSTRIL ONCE DAILY 2013 active RECORDED 12/29/19 14 9:47AM BY ANGELES Abdi MD, OFFICE VISIT; Not Available Not Available Not Available amoxicill in 875 mg tablet TWO TIMES DAILY 01/28 completed RECORDED 03/11/20 12 1:58PM BY CARY KRISHNA, MEDICATI ON AUTO-DANAY CTIVATIO N; Not Available Not Available Not Available benzonata te 100 mg capsule TAKE 1 CAPSULE BY MOUTH THREE TIMES A DAY NEEDED FOR COUGH FOR 7 DAYS 02/14 completed Not Available Not Available Not Available doxycycli ne monohydra te 100 mg capsule 01/18 completed Not Available Not Available Not Available nystatin 100,000 unit/gram topical cream APPLY TO AFFECTED AREA TWICE A DAY FOR 10 DAYS 07/27 completed Not Available Not Available Not Available triamcino lone acetonide 55 mcg nasal spray aerosol SPRAY 2 SPRAYS INTO EACH NOSTRIL EVERY DAY 07/27 completed Not Available Not Available Not Available nystatin- triamcino lone 100,000 unit/g-0. 1 % topical cream BID 03/26 completed RECORDED 03/26/20 10 5:18PM BY VIK PENA, ANNOTATI ON/BINDU PEACOCK; Not Available Not Available Not Available diclofena c potassium 50 mg tablet TAKE 1 TABLET BY MOUTH TWICE A DAY FOR 10 DAYS 07/27 completed Not Available Not Available Not Available betametha sone dipropion ate 0.05 % topical cream APPLY TO RASH TWICE A DAY, NEEDED. AVOID USE ON THE FACE AND GROIN 11/15 completed Not Available Not Available Not Available mometason e 50 mcg/actua tion nasal spray spray into each nare daily 04/01 completed Not Available Not Available Not Available omeprazol e 20 mg capsule,d elayed release TAKE 1 CAPSULE BY MOUTH 30-60 MINUTES PRIOR TO BREAKFAS T 08/15 completed Not Available Not Available Not Available hydrocort isone 2.5 % topical cream APPLY TO FACIAL RASH 2 TIMES A DAY NEEDED active Not Available Not Available No t Available monteluka st 10 mg tablet TAKE 1 TABLET BY MOUTH EVERYDAY AT BEDTIME active Not Available Not Available No t Available ammonium lactate 12 % topical cream PLEASE SEE ATTACHED FOR DETAILED DIRECTIO NS active Not Available Not Available No t Available Longs Adult Low Strength ASA 81 mg tablet,de layed release Take 1 tablet every day by oral route. 06/02 completed Not Available Not Available Not Available clobetaso l 0.05 % topical ointment 10/19 /2017 completed Not Available Not Available Not Available lorazepam 1 mg tablet TAKE 1 TABLET BY MOUTH NEEDED DIRECTED 11/15 completed Not Available Not Available Not Available albuterol sulfate HFA 90 mcg/actua tion aerosol inhaler INHALE 2 PUFFS EVERY 4 HOURS NEEDED active Not Available Not Available No t Available ferrous sulfate 325 mg (65 mg iron) tablet,de layed release Take 1 tablet twice a day by oral route. 08/30 completed Take with orange juice Not Available Not Available Not Available ketoconaz ole 2 % topical cream APPLY EXTERNAL LY IN BETWEEN TOES ONCE A DAY FOR 30 DAYS active Not Available Not Available No t Available betametha sone dipropion ate 0.05 % topical ointment APPLY TO AFFECTED AREAS ON BACK AND CHEST TWICE A DAY FOR 2 WEEKS, OFF 1 WEEK. REPEAT NEEDED. 07/27 completed Not Available Not Available Not Available fluticaso ne propionat e 50 mcg/actua tion nasal spray,patrick pension SPRAY 2 SPRAYS INTO EACH NOSTRIL EVERY DAY active Not Available Not Available No t Available doxycycli ne hyclate 100 mg tablet Take 1 tablet twice a day by oral route for 10 days. 09/22 completed Not Available Not Available Not Available meclizine 25 mg chewable tablet QID PRN VERTIGO 08/20 completed RECORDED 11/05/19 10 11:34AM BY ANGELES Abdi MD, MEDICATI ON AUTO-DANAY CTIVATIO N; Not Available Not Available Not Available albuterol (refill) 90 mcg/actua tion aerosol inhaler Q4H PRN 04/10 completed RECORDED 04/10/20 10 1:48PM BY PINKY SONI ON/BINDU PEACOCK;THIS ORDER DISCONTI NUED PER MEDI-SPA N. Not Available Not Available Not Available Mucinex 600 mg tablet, extended release Take 1 tablet every 12 hours by oral route as needed for 10 days. 10/08 completed Not Available Not Available Not Available azithromy tila 500 mg tablet QD 05/08 completed RECORDED 07/06/20 07 11:27AM BY KULWANT FUENTES, MEDICATI ON AUTO-DANAY CTIVATIO N; Not Available Not Available Not Available cyclobenz aprine 5 mg tablet Take 1 tablet as needed by oral route at bedtime for 20 days. 2024 active Not Available Not Available Not Avai lable Prilosec OTC 20 mg tablet,de layed release DAILY 03/24 completed RECORDED 04/18/20 08 11:54AM BY RANDALL NOLEN MD, MEDICATI ON AUTO-DANAY CTIVATIO N; Not Available Not Available Not Available tiotropiu m bromide 18 mcg capsule with inhalatio n device DAILY 12/15 completed RECORDED 12/16/19 13 2:28PM BY MILTON MCDONALD MA, OFFICE VISIT; Not Available Not Available Not Available Flonase QD 03/11 completed RECORDED 03/11/20 12 3:28PM BY LYNNE WALDEN, OFFICE VISIT; Not Available Not Available Not Available Amoxil BID 11/15 completed RECORDED 12/06/19 09 11:44AM BY ANGELES Abdi MD, MEDICATI ON AUTO-DANAY CTIVATIO N; Not Available Not Available Not Available iron 07/22 completed Not Available Not Available Not Available MoviPrep 100 gram-7.5 gram-2.69 1 gram oral powder packet 01/18 completed Not Available Not Available Not Available Gavilyte- C 240 gram-22.7 2 gram-6.72 gram-5.84 gram oral solution 01/18 completed Not Available Not Available Not Available GaviLyte- G 236 gram-22.7 4 gram-6.74 gram-5.86 gram oral solution TAKE 8 OUNCE BY MOUTH DIRECTED 08/04 completed Not Available Not Available Not Available Sinus Rinse TWO TIMES DAILY 02/13 completed RECORDED 03/11/20 12 1:58PM BY CARY KRISHNA, MEDICATI ON AUTO-DANAY CTIVATIO N; Not Available Not Available Not Available Gel-One 30 mg/3 mL intra-art icular syringe 08/04 completed Not Available Not Available Not Available Dupixent 300 mg/2 mL subcutane ous syringe Inject 300 mL every 2 weeks by sub-q route as directed for 42 days. active Not Available Not Available No t Available Wixela Inhub 250 mcg-50 mcg/dose powder for inhalatio n TAKE 1 PUFF BY MOUTH TWICE A DAY 08/04 completed Not Available Not Available Not Available Wixela Inhub 500 mcg-50 mcg/dose powder for inhalatio n TAKE 1 PUFF BY MOUTH TWICE A DAY 08/15 completed 02/23/25 on hold Not Available Not Available Not Available Nucala 100 mg/mL subcutane ous auto-inje ctor 1 injectio n once a month 07/27 completed Not Available Not Available Not Available Trelegy Ellipta 200 mcg-62.5 mcg-25 mcg powder for inhalatio n INHALE 1 PUFF INTO LUNGS DAILY 08/15 completed Not Available Not Available Not Available Tezspire 210 mg/1.91 mL (110 mg/mL) subcutane ous syringe 11/15 completed Not Available Not Available Not Available Tezspire 210 mg/1.91 mL (110 mg/mL) subcutane ous pen injector 11/15 completed Not Available Not Available Not Available Vitals Date Recorded Body height Body mass index (BMI) Body weight Heart rate Oxygen saturation Body temperature Systolic And Diastolic Provider Name and Address Organization Details Last Updated DateTime 5 170.18 cm 36.2 kg/m2 520824. 84 g 92 /min 96 % 98.3 [degF] 113/74 mm[Hg] [facility] 15:[facility]02 Date Recorded Body height Body mass index (BMI) Body weight Heart rate Oxygen saturation Body temperature Systolic And Diastolic Provider Name and Address Organization Details Last Updated DateTime 4 170.18 cm 37.4 kg/m2 962376. 58 g 90 /min 96 % 97.6 [degF] 104/66 mm[Hg] Savannah Rosas cristhian [facility] 4 08:56:34 Date Recorded Body height Body mass index (BMI) Body weight Heart rate Oxygen saturation Body temperature Systolic And Diastolic Provider Name and Address Organization Details Last Updated DateTime 5 170.18 cm 36.4 kg/m2 745158. 13 g 71 /min 98 % 97.9 [degF] 124/75 mm[Hg] Sita Mueller LPN [facility] 5 13:39:15 Date Recorded Body height Body mass index (BMI) Body weight Heart rate Oxygen saturation Body temperature Systolic And Diastolic Provider Name and Address Organization Details Last Updated DateTime 4 170.18 cm 37.4 kg/m2 015644. 58 g 66 /min 97 % 97.9 [degF] 112/70 mm[Hg] Savannah ferreira MA [facility] 4 11:10:36 Date Recorded Body height Body mass index (BMI) Body weight Heart rate Oxygen saturation Body temperature Systolic And Diastolic Provider Name and Address Organization Details Last Updated DateTime 5 170.18 cm 38.5 kg/m2 512441. 72 g 83 /min 97 % 98 [degF] 115/71 mm[Hg] Tatyana Fermin MA [facility] 5 11:47:15 Social History Question Answer Notes LastModified by Organizat ion Details LastModified Time Tobacco Smoking Status Never Smoker MARTHA Luna, [facility] 10/17/2014 14:45:56 Do You Have An Advance Directive? No [email or web address] Information not available 02/06/2022 Is Blood Transfusion Acceptable In An Emergency? Yes Information not available 02/06/2022 What Is Your Level Of Caffeine Consumption? Moderate [email or web address] Information not available 02/06/2022 How Much Tobacco Do You Chew? None Information not available 11/29/2017 What Type Of Diet Are You Following? REGULAR Information not available 10/17/2014 Which Illicit Or Recreational Drugs Have You Used? None Information not available 11/29/2017 Live Alone Or With Others? With Others [email or web address] Information not available 02/06/2022 Do You Take Precautions To Prevent Distracted Driving? Yes Information not available 11/29/2017 How Often Do You Need To Have Someone Help You When You Read Instructions, Pamphlets, Or Other Written Material From Your Doctor Or Pharmacy? Never Information not available 11/29/2017 Have You Served In The ? No Information not available 11/29/2017 Have You Or Anyone In Your Household Had Any Of The Following Symptoms In The Last 14 Days: Sore Throat, Cough, Chills, Body Aches For Unknown Reasons, Shortness Of Breath For Unknown Reasons, Loss Of Smell, Loss Of Taste, Fever At Or Greater Than 100 Degrees Fahrenheit? No [email or web address] Information not available 04/01/2020 Are You Or Anyone In Your Household A Health Care Provider Or Emergency Responder? No [email or web address] Information not available 04/01/2020 To The Best Of Your Knowledge Have You Been In Close Proximity To Any Individual Who Tested Positive For COVID-19? No [email or web address] Information not available 04/01/2020 Have You Recently Traveled To A COVID-19 High Risk Area Or Gathering In The Last 10 Days? No [email or web address] Information not available 01/10/2021 What Was The Date Of Your Most Recent Tobacco Screening? 02/23/2025 [email or web address] Information not available 02/23/2025 How Many Children Do You Have? 4 Information not available 10/17/2014 Do You Use Protection During Sex? Always Information not available 02/06/2022 Do You Use Your Seat Belt Or Car Seat Routinely? Yes [email or web address] Information not available 02/06/2022 Seat Belts Used Routinely Yes [email or web address] Information not available 02/06/2022 Are You Sexually Active? No [email or web address] Information not available 02/06/2022 Smoke Alarm In Home Yes Information not available 02/06/2022 Do You Have Smoke And Carbon Monoxide Detectors In Your Home? Yes Information not available 02/06/2022 At What Age Did You Start Smoking Tobacco? 0 Information not available 11/29/2017 Are You Passively Exposed To Smoke? No Information no t available 11/29/2017 How Much Tobacco Do You Smoke? No Information not available 11/29/2017 General Stress Level Low [email or web address] Information not available 02/06/2022 Do You Use Sunscreen Routinely? Yes Information not available 10/17/2014 How Many Years Have You Smoked Tobacco? 0 Information not available 11/29/2017 Sex: Unknown Functional Status Question Answer Note LastModified by Organizat ion Details LastModified Time Do you use any illicit or recreational drugs? No Information not available 02/17/2023 What is your level of alcohol consumption? Occasional [email or web address] Information not available 10/17/2014 Do you or have you ever used smokeless tobacco? Never used smokeless tobacco Information not available 01/10/2021 Are you currently employed? Yes [email or web address] Information not available 10/17/2014 Are you able to walk independently without assistance or assistive devices? YESWOREST [email or web address] Information not available 02/06/2022 Are you able to care for yourself independently? 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 Never used electronic cigarettes [email or web address] Information not available 02/06/2022 What is your exercise level? Moderate 5-6 days a week Information not available 02/17/2023 Mental Status None recorded. Family History Relationship Description Onset Age of this Age Resolved Age Notes LastModified by Organization Details LastModified Time Maternal Grandmother Hypertensive disorder [email or web address] Not available 10/17 14:33:23 Father Diabetes mellitus [email or web address] Not available 10/17 14:33:23 Father Asthma [email or web address] Not available 02/06/2022 15:00:44 Father Allergy [email or web address] Not availabl e 02/06/2022 15:00:44 Father Cerebrovascu lar accident [email or web address] Not available 08:37:36 Mother Polyp of colon [email or web address] Not available 02/06 15:00:44 Mother Anemia [email or web address] Not available 02/06/2022 15:00:44 Son Asthma [email or web address] Not available 02/06/2022 15:00:44 Brother Diabetes mellitus [email or web address] Not available 05/06 /2022 15:00:44 Brother Asthma [email or web address] Not availabl e 02/06/2022 15:00:44 Paternal Grandmother Alzheimer's disease Not available 02/06 15:00:44 Daughter Asthma [email or web address] Not availab le 02/06/2022 15:00:44 Sister Asthma [email or web address] Not available 02/06/2022 15:00:44 Sister Anxiety disorder [email or web address] Not available 02/06 15:00:44 Notes:No FH of breast or col on cancer Medical History Condition Response Anemia Y Eczema Y Asthma Y Allergies Y Gynecological History Statement/Question Response Date of Last Pap Smear 12/09/2020 Date of Last Colonoscopy 07/22/2018 Most Recent Mammogram 10/10/2024 Most Recent Bone Density Obstetrics History GPAL:G 0 P 0 0 0 0 Immunizations Vaccine Type Date Status Note Provider Name and Address Organization Details Recorded Time COVID-19, mRNA, LNP-S, PF, 30 mcg/0.3 mL dose 021 completed MARTHA Valle [facility] 07/27/2022 14:20:01 COVID-19, mRNA, LNP-S, PF, 30 mcg/0.3 mL dose 021 completed MARTHA Valle [facility] 07/27/2022 14:20:01 Influenza, high-dose, trivalent, PF 014 completed MARTHA Valle [facility] 07/27/2022 14:20:01 Influenza, split virus, quadrivalent, PF 017 completed MARTHA Valle [facility] 07/27/2022 15:02:43 Influenza, split virus, quadrivalent, PF 019 completed MARTHA Valle [facility] 07/27/2022 15:02:44 Tdap 019 completed MARTHA Valle [facility] 07/27/2022 15:02:44 Influenza, MDCK, quadrivalent, PF 022 completed MARTHA Valle, [facility] 10/08/2022 09:39:43 Hep B, adult 007 completed MARTHA Valle, [facility] 07/27/2022 14:20:01 MMR 007 completed MARTHA Valle, [facility] 07/27/2022 14:20:01 Hep B, adult 007 completed MARTHA Valle, [facility] 07/27/2022 14:20:01 influenza, seasonal, intradermal, preservative free 013 completed Not Available [facility] 04/17/2014 13:23:21 Tdap 009 completed MARTHA Valle, [facility] 07/27/2022 14:20:01 pneumococcal polysaccharide PPV23 013 completed Not Available [facility] 04/17/2014 13:23:21 zoster recombinant 023 cancelled patient objection KRISTEN MENDEZ MD [address] [address], [place], [address], [facility] 02/17/2023 09:26:42 Influenza, split virus, trivalent, PF 024 completed MARTHA Hilliard, [facility] 08/04/2024 11:28:23 Past Encounters Encounter ID Performer Location Encounter Start Date Encounter Closed Date Diagnosis/Indication Diagnosis SNOMED-CT Code Diagnosis ICD10 Code Diagnosis IMO Codes Diagnosis Note [id number] [facility]Comm erce [address] [facility] [place] [id number] 01/04/2007 00:00:00 [id number] autoEComm erce [address] [facility] [facility] [place] [id number] 05/03/2007 00:00:00 [id number] auto[facility]Comm erce [address] [facility] [place] [id number] 10/25/2007 00:00:00 [id number] [address] [address] [address] [place] [address] 03/20/2008 00:00:00 [id number] [address] [address] [place] [address] 11/01/2008 00:00:00 [id number] [facility]ce [address] [place] [address] 05/01/2009 00:00:00 [id number] autoEComm erce [address] [facility] [address] [place] [address] 07/31/2009 00:00:00 [id number] autoEComm erce [address] [facility] [address] [place] [address] 03/07/2010 00:00:00 [id number] autoEComm erce [address] [facility] [place] [address] 09/08/2010 00:00:00 [id number] autoEComm erce [address] [facility] [place] [address] 03/09/2011 00:00:00 [id number] autoEComm erce [address] [facility] [address] [place] [address] 01/15/2012 00:00:00 [id number] autoEComm erce [address] [facility] [place] [address] 03/11/2012 00:00:00 [id number] autoEComm erce [address] [facility] [address] [place] [address] 06/29/2012 00:00:00 [id number] autoEComm erce [address] [facility] [address] [place] [address] 07/20/2012 00:00:00 [id number] autoEComm erce [address] [facility] [place] [address] 08/18/2012 00:00:00 [id number] autoEComm erce [address] [facility] [address] [place] [address] 10/05/2012 00:00:00 [id number] autoEComm erce [address] [place], [place] [address] 10/29/2012 00:00:00 [id number] autoEComm erce [address] [place], [place] [address] 12/15/2012 00:00:00 [id number] autoEComm erce [address] [place], [place] [address] 05/06/2013 00:00:00 [id number] autoEComm erce [address] [facility] [address] [place], [place] [address] 08/04/2013 00:00:00 [id number] autoEComm erce [address] [facility] [address] [place], [place] [address] 08/11/2013 00:00:00 [id number] autoEComm erce [address] [facility] [place], [place] [address] 09/29/2013 00:00:00 [id number] autoEComm erce [address] [facility] [place], [place] [address] 12/28/2013 00:00:00 [id number] Angeles parrish MD Main Office [address] [place], [place] [address] 10/17/2014 14:21:49 10/17/2014 15:33:55 Adult health examination 649080973 mammo is utd, pt to get value stream manager eval due to heavy menses. Asthma 867521271 pt is off advair due to insurance issues. will restart Anemia 684432289 needs to restart iron, heavy menses and hx of anemia, check level Dysfunctio nal uterine bleeding 53096043 heavy and prolong,e we will setup value stream manager apt for pt [id number] Angeles parrish MD Main Office [address] [place], [place] [address] 01/03/2015 08:45:47 01/03/2015 09:30:56 Constipation 22793877 since iron tx, gave paper on tx with miralax qd for 4 days then QOD and diet intake, Family his tory of polyp of colon 273318919 we will set up first appt Dysmenorrhea 119797555 see value stream manager Anemia 636478201 on iron [id number] Angeles parrish MD Main Office [address] [address] 01/17/2015 15:49:00 01/17/2015 16:39:43 Anemia 481712101 due to heavy menses, encouraged pt to take at least one iron a day, recheck level in 3 months on iron Dysfunctio nal uterine bleeding 72456371 heavy and prolonged, pt has value stream manager appt to discuss possible ablation Constipation 44875905 bett er with erlin [id number] Angeles parrish MD Main Office [address] [address] 07/22/2017 15:52:51 07/22/2017 16:33:56 Pneumonia 012209906 J18.9 see hx, on doxycyclin e and prednisone , slow improvemen t. I gave CXR report to our gifts officer since [facility] did not treat pt for pneumonia despite the CXR reading showing a pneumonia, she will look into as will the patient. pt is improving. m pt to get flu shot in a few weeks, already had pneumovax years ago, this is pts second pneumonia Asthma 439003999 J45.90 9 continue inhalers [id number] Angeles parrish MD Main Office [address] [address] 09/22/2017 13:26:24 09/22/2017 14:21:35 Adult health examination 483583225 Z00.00 pap is utd, just had yesterday, will get an IUD, mammogram and colonoscop y are utd, will work on low carb diet Needs infl uenza immunization 086312837 Z23 Asthma 789850092 J45.90 9 continue inhalers, is wheezing today, missed some singulair Hypercholesterolemia 136 98340 E78.2 check fasting Iron defic iency anemia 85199459 D50.9 anemic in the past, from heavy menses, check labs, start iron if low Fatigue 02017046 R53.83 check labs [id number] Malini Parrish PA-C Main Office [address] [facility] [address] [place] [place] [address] 11/29/2017 11:25:21 11/29/2017 12:46:36 Acute pharyngitis 576072796 J02.9 Hoarse 84734983 R49.0 ? d/t pnd and/or enlarged thyroid Upper resp iratory infection 61108541 J06.9 Goiter 1350298 E04.9 [id number] Angeles parrish MD Main Office [address] [address] [place] [address] 12/02/2018 16:09:42 12/02/2018 16:39:56 Asthma 971062476 J45.909 continue inhalers, is wheezing today, continue Acute asthma 725122864 J 45.901 asthma flare, needs prednisone and continue usual meds, no need for abx [id number] Angeles parrish MD Main Office [address] [address] [place] [address] 01/18/2019 16:14:31 01/19/2019 14:27:48 Adult health examination 915687097 Z00.00 pap is utd, just had yesterday, will get an IUD, mammogram and colonoscop y are utd, will work on low carb diet Administra tion of viral vaccine 41955255 Z23 Anemia due to unknown mechanism 23589335 D64.9 pt to see heme, osme element of iron deficient form heavy menses but has always been anemic and fam hx of anemia, ? component of thallessem ia? [id number] Angeles parrish MD Main Office [address] [address] [place] [address] 03/03/2019 10:44:52 03/03/2019 11:47:39 Cervical radiculopathy 48295598 M54.12 MRI of cervical spine with cervical spinal stenosis and left foraminal stenosis, numbness in arm and leg, [id number] Angeles parrish MD Main Office [address] [address] [place] [address] 06/02/2019 13:58:55 06/02/2019 14:34:04 Neck pain 59590807 M54.2 much improved with PT finish course nd do home exercises [id number] Angeles parrish MD Main Office [address] [address] [place] [address] 07/20/2019 09:48:48 07/20/2019 10:44:16 Needs influenza immunization 655786201 Z23 Anemia due to unknown mechanism 90398824 D64.9 chek labs, not on iron due to GI intoleranc e and is tired, heavy menses Moderate p ersistent asthma 352806173 J45.40 continue inhalers, well controlled Fatigue 29133605 R53.83 check labs [id number] Angeles parrish MD Main Office [address] [place] [address] 08/30/2019 10:05:23 08/30/2019 12:11:50 Vaginal discharge 147419495 N89.8 sounds like gardnerell a, hx of new parther before symptoms, no concern for PID, pt not interested in HIV testing, will tx for GC/chlamyd ia and tx for yeast and gardnerell a. return if not improved or go to pts Under Cutter for exam [id number] Angeles parrish MD Main Office [address] [place] [address] 11/24/2019 08:42:37 11/24/2019 09:31:53 Anemia due to unknown mechanism 02375784 D50.0 heavy menses still, will take one iron a day when on menses, level nl now, recheck in 3 months, pt to take one iron a day when on menses. Pt wants to clarify if she has sickle trait, no record in labs but was told as a younger person she did Moderate p ersistent asthma 337336347 J45.40 continue inhalers, well controlled Insomnia 425676380 F51.0 9 talked about better sleep hygeine, taking advair earlier in evening [id number] Angeles parrish MD Main Office [address] [place] [address] 12/20/2019 13:04:22 12/20/2019 14:19:01 Migraine 45520293 G43.909 see hx pt with a migraine 6 days ago, sounds like residual symptoms, no concern for infection, no fever, pt is to push fluids, rest, call if any new symptoms. Dizziness 068544020 R42 encouraged fluids [id number] Angeles parrish MD Main Office [address] [facility] [address] [facility] [place] [address] 04/01/2020 09:41:21 04/01/2020 10:37:02 Knee pain 30028815 M25.561 M25.562 Likely some early arthritis, would try PT, can take nsaids prn, ice. Enc weight loss. check xray of knees [id number] [facility] [address] [facility] [address] [place] [address] 09/23/2020 14:42:43 09/24/2020 09:14:26 SARS-CoV-2 078915251 U07.1 pt tested positive, is not very ill and I advised her to watch out for shortness of breath, worsening illness, she will isolate at home for 10 days long talk about how to care for herself, taling to those that were exposed to her to home quarantine [id number] Angeles parrish MD Main Office [address] [facility] [address] [place] [address] 01/10/2021 12:56:56 01/10/2021 13:46:17 Adult health examination 978974863 Z00.00 all screening is utd is exercising and doing better Moderate p ersistent asthma 907211749 J45.40 continue inhalers, well controlled treated by [facility] Bilateral knee pain 1187 466798 3404216 M25.561 bilateral knee pain, sounds like arthritis Hypercholesterolemia 136 49041 E78.2 check fasting History of anemia - iron deficient 176492015 Z86.2 check labs Fatigue 79038829 R53.83 check labs [id number] Angeles parrish MD Main Office [address] [facility] [address] [facility] [place] [address] 07/09/2021 10:19:00 07/09/2021 11:14:03 Moderate persistent asthma 299841417 J45.40 continue inhalers, well controlled treated by [facility] continue meds [id number] Angeles parrish MD Main Office [address] [facility] [address] [place] [address] 02/06/2022 14:55:02 02/06/2022 15:40:26 Adult health examination 296510722 Z00.00 all screening is utd is exercising and doing better Moderate p ersistent asthma 133884812 J45.40 continue inhalers, well controlled treated by [facility] continue meds Body mass index 30+ - obesity 545469413 Z68.36 pt will set up appt with Dr Soto to discuss meds, very frustrated with her weight. Hypercholesterolemia 136 62309 E78.2 check fasting Fatigue 61654989 R53.83 check labs [id number] Alfredito Young MD Main Office [address] [facility] [address] [facility] [place] [address] 07/27/2022 14:53:43 07/27/2022 15:42:50 Pneumonia 029612752 J18.9 will rx for early pna - recommend probiotics while on abx Asthma 649115199 J45.90 9 stable, cont inhalers as dir -- lungs are clear so do not feel she would benefit from pred pulse at this time (low risk for hospitaliz ation at this time) - rtc sooner if worse [id number] Alfredito Young MD Main Office [address] [facility] [address] [facility] [place] [address] 10/08/2022 09:28:02 10/08/2022 10:38:15 Dyspnea 882129982 R06.00 Screen for anemia/CHF /pneumonia . Possibly related to asthma so will see if short course of prednisone helps. Consider further imaging/PF T's if persaisten t/worse. Acute low back pain [id number] M54.50 Low risk for PE, so If d-dimer negative no further eval needed. Hypercholesterolemia 136 89847 E78.00 Due for labs that were not done from her last physical. Iron defic iency anemia 93443343 D50.9 Rule this out as issue since IUD has controlled DUB. Left sided chest pain 28 [id number] R07.9 Atypical for cardiac pain jim with nl ECG. See if short course of steroid helps. [id number] KRISTEN MENDEZ MD Main Office [address] [facility] [place] [address] 02/17/2023 08:23:36 02/17/2023 09:03:07 Adult health examination [id number] Z00.00 Health Maintenanc e FemaleA) Patient was counseled on healthy diet, exercise and nutrition due to BMI of 36.6 B) ScreeningL ast Mammogram: start at age 50 stop at 74Date: 07/24/2021 Result: BIRADS-2Ne xt: due (performed on 07/2023, will try to get results) Last Pap smear: start at age 21 to age 65Date: 12/09/2020e sults: negative for any atypical cellsNext: 3 years, 12/2023 (had it this year, will try to get results) Last Colonoscop y: start at age 45-75Date: 07/22/2018 Result: diverticul osis and hemorrhoid sNext: 5 years, 07/2023 Last DEXA scan:Date: due at 66Result: ??? C) Vaccines:I nfluenza: 08/21/2022 TdAP: 01/18/2019Z seda: REFUSEDPCV 13: due at 50SSRK20: 08/11/2013 PCV20:PCV1 5:COVID: 11/13/2020 , 12/05/2020 D) Routine blood work performed in ) Updated patient's history RTC in one year for annual exam or sooner if any acute complaints Moderate p ersistent asthma 920184399 J45.40 - currently under control- pt was last seen by pulm on 10/2019 (was last month, will need notes)- currently on advair 1 puff BID- takes albuterol as needed- currently on montelukas t 10mg QD- dupixent 300mg every 2 weeks Allergic rhinitis 938408 04 J30.9 - seeing artificial 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femi Hyperlipidemia 01118111 E78.5 - ASCVD score of 4.5- Eat a heart-heal thy diet - Choose healthy fats. Avoid saturated fats that are found primarily in red meat, mack, sausage, and full-fat dairy products. Advised to choose lean proteins like chicken, turkey, and fish when possible. Switch to low-fat or fat-free dairy. And use monounsatu rated fats like olive and canola oil for cooking. - Cut out the trans fats. Trans fats are found in fried food and processed foods, like cookies, crackers, and other snacks. - Eat more omega-3s. Counseled on eating more fish, including salmon, mackerel, nolan ,nuts and seeds, like walnuts and flax seeds. - Increase your fiber intake. By eating more oats, brain, fruits, beans, and vegetables , can lower your LDL cholestero l levels. - Eat more fruits and veggies. Body mass index 30+ - obesity 308986630 Z68.36 - BMI is 36.6- Cut down on (limit) fast foods, sweets, and processed snack foods. - Limit alcohol intake to no more than 1- 2 drinks a day for men. One drink equals 12 oz of beer, 5 oz of wine, or 1 oz of hard liquor. - Keep a weight loss journal and keep track of the food and portions that you eat. - The exercise that you do- 4 times a week or 150 minutes cumulative of moderate exercise recommende d. Vaccine de clined by patient [id number] 02 Z28.21 Bilateral hearing loss 05138716 H91.93 - bilateral, started a few months ago- no hearing loss noted on exam- pt referred to audiologis t as per request Obesity 265452956 E66.9 [id number] Alfredito Young MD Main Office [address] [facility] [address] [place] [address], [place] [address] 02/15/2024 08:48:25 02/15/2024 09:36:29 Atypical chest pain 612975840 R07.89 seen at ER recently - had negative cardiac w/u (ekg & cardiac enzymes, and nl cxr) - resolved Solitary n odule of lung 079421804 R91.1 R pulm nodule found on ct scan at [facility] on 02.06.24 (d/t slightly elevated d-dimer - no pe found) - advised by ER MD to get next in 6 months - .24pt is nonsmoker -- most likely has granuloma, offered re-assuran certc c pcp in 10.24 Exacerbati on of moderate persistent asthma 560011883 J45.41 seen by c last week - put on pred taper, finish as dir (consider taking c food to lessen gi upset) - better now, pending f/u c artificial 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 5.21cont inhalers as dir [id number] Randall Bonds MD Main Office [address] [facility] [address] [place] [address] 02/21/2024 08:50:20 02/21/2024 09:22:42 Adult health examination 499049971 Z00.00 Health Maintenanc e FemaleA) Patient was counseled on healthy diet, exercise and nutrition due to BMI of 36.6 B) ScreeningL ast Mammogram: start at age 50 stop at 74Date: 09/30/2023 Result: BI-RADS: 2 (Benign)Ne xt: due 09/2024 Last Pap smear: start at age 21 to age 65Date: 4Resu lts: negative for any atypical cellsNext: 3 years, 12/2023 (had it this year, will try to get results) Last Colonoscop y: start at age 45-75Date: 09/16/2023 Result: diverticul osis and hemorrhoid sNext: 5 years, 09/2028 Last DEXA scan:Date: due at 66 C) Vaccines:I nfluenza: 08/21/2022 TdAP: 01/18/2019Z seda: REFUSEDPCV 13: due at 83UXTO05: 08/11/2013 COVID: 11/13/2020 , 12/05/2020 D) Routine blood work performed in ) Updated patient's history RTC in one year for annual exam or sooner if any acute complaints Moderate p ersistent asthma 323621657 J45.40 - currently under control- follows with pulmonolog y- currently on advair 1 puff BID- takes albuterol as needed- currently on montelukas t 10mg QD- dupixent 300mg every 2 weeks Allergic rhinitis 925070 04 J30.9 - follows with artificial 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femi the shots Bilateral hearing loss 79617720 H91.93 - bilateral, started a few months ago- no hearing loss noted on exam; Majano and Rinne test were WNL- pt referred to audiologis t as per request Hyperlipidemia 53539830 E78.5 -last ASCVD score of 4.5 - Eat a heart-heal thy diet- Choose healthy fats. Avoid saturated fats that are found primarily in red meat, mack, sausage, and full-fat dairy products. Advised to choose lean proteins like chicken, turkey, and fish when possible. Switch to low-fat or fat-free dairy. And use monounsatu rated fats like olive and canola oil for cooking.- Cut out the trans fats. Trans fats are found in fried food and processed foods, like cookies, crackers, and other snacks.- Eat more omega-3s. Counseled on eating more fish, including salmon, mackerel, nolan ,nuts and seeds, like walnuts and flax seeds.- Increase your fiber intake. By eating more oats, brain, fruits, beans, and vegetables , can lower your LDL cholestero l levels.- Eat more fruits and veggies. Body mass index 30+ - obesity 267073372 Z68.36 - BMI is 36.6 Vaccine de clined by patient [id number] 02 Z28.21 pt declined the shingrix vaccine Obesity 599200575 E66.9 - Cut down on (limit) fast foods, sweets, and processed snack foods.- Limit alcohol intake to no more than 1- 2 drinks a day for men. One drink equals 12 oz of beer, 5 oz of wine, or 1 oz of hard liquor.- Keep a weight loss journal and keep track of the food and portions that you eat.- The exercise that you do- 4 times a week or 150 minutes cumulative of moderate exercise crystale lisandro [id number] KRISTEN MENDEZ MD Main Office [address] [facility] [address] [facility] [place], [place] [address] 08/04/2024 11:00:02 08/04/2024 11:31:05 Moderate persistent asthma 946757193 J45.40 - currently under control- pt was last seen by pulm on 10/2019 (was last month, will need notes)- pt has been following more closely with allergy, last seen on 07/10/2024 who ordered repeat PFT testing- currently on advair 1 puff BID- takes albuterol as needed- currently on montelukas t 10mg QD- dupixent 300mg every 2 weeks Nodule of lung 121417455 R91.1 - noted on CTA done on 02/06/2024 : Incidental 9 x 5 x 7 mm (average 7 mm) right lower lobe pulmonary nodule.- will order repeat CT scan of the lungs to ensure size has not changed Hyperlipidemia 14812291 E78.5 - ASCVD score of 2.5- lipid panel 02/2024: cholestero l-258, triglyceri kamron-118, HDL-66, LDL-171 - Eat a heart-heal thy diet- Choose healthy fats. Avoid saturated fats that are found primarily in red meat, mack, sausage, and full-fat dairy products. Advised to choose lean proteins like chicken, turkey, and fish when possible. Switch to low-fat or fat-free dairy. And use monounsatu rated fats like olive and canola oil for cooking.- Cut out the trans fats. Trans fats are found in fried food and processed foods, like cookies, crackers, and other snacks.- Eat more omega-3s. Counseled on eating more fish, including salmon, mackerel, nolan ,nuts and seeds, like walnuts and flax seeds.- Increase your fiber intake. By eating more oats, brain, fruits, beans, and vegetables , can lower your LDL cholestero l levels.- Eat more fruits and veggies. Onychomyco sis of toenails 118342056 B35.1 - worse on the left side- provided with topical solution- pt does apply vix as needed Needs infl uenza immunization 094466597 Z23 19 YEARS AND OLDER ONLY [id number] Alfredito Young MD Main Office [address] [place] [address] 11/15/2024 15:49:41 11/15/2024 16:59:37 Strain of back muscle 176216618 S39.012A Discussed with pt that the likely etiology of her symptoms are due to a thoracic/l umbar muscle strain. She was educated on using conservati ve management including heat, ice, rest, topical NSAID Voltaren gel, Lidocaine patches and icy hot as needed for symptoms management . I also informed her on the benefits of oral ibuprofen to help with inflammati on, but she is not interested in taking an oral NSAIDs. She is not interested in a muscle relaxer prescripti on at this time. I also discussed it is important to take a couple of days off from vigorous strength training but to maintain low impact movement following a couple days of rest. No movement at all will exacerbate her symptoms upon returning to regular activity. She was provided an order for thoracic/l umbar XR and will get PMR eval. She agrees with the plan and will call in the interim if her symptoms worsen or new symptoms arise. [id number] KRISTEN MENDEZ MD Main Office [address] [facility] [address] [place] [address] 02/23/2025 13:30:35 02/23/2025 14:05:19 Moderate persistent asthma 559648354 J45.40 - currently under control- pt was last seen by pulm on 08/2024: no change in regimen- pt has been following more closely with allergy, last seen on 07/10/2024 who ordered repeat PFT testing- currently on advair 1 puff BID- takes albuterol as needed- currently on montelukas t 10mg QD- dupixent 300mg every 2 weeks Nodule of lung 316791723 R91.1 - noted on CTA done on 02/06/2024 : Incidental 9 x 5 x 7 mm (average 7 mm) right lower lobe pulmonary nodule.- repeat CT chest done on 08/2024: No interval change in the medial right lower lobe nodule measures approximat rosa 7 x 8 x 6 mm. If low risk for malignancy , consider follow-up CT at 18-24 months from the first examinatio n.> repeat CT chest for 09/2026 Hyperlipidemia 26134681 E78.5 - ASCVD score of 2.5- lipid panel 02/2024: cholestero l-258, triglyceri kamron-118, HDL-66, LDL-171- ordered repeat levels - Eat a heart-heal thy diet- Choose healthy fats. Avoid saturated fats that are found primarily in red meat, mack, sausage, and full-fat dairy products. Advised to choose lean proteins like chicken, turkey, and fish when possible. Switch to low-fat or fat-free dairy. And use monounsatu rated fats like olive and canola oil for cooking.- Cut out the trans fats. Trans fats are found in fried food and processed foods, like cookies, crackers, and other snacks.- Eat more omega-3s. Counseled on eating more fish, including salmon, mackerel, nolan ,nuts and seeds, like walnuts and flax seeds.- Increase your fiber intake. By eating more oats, brain, fruits, beans, and vegetables , can lower your LDL cholestero l levels.- Eat more fruits and veggies. History an d physical examination, annual for health maintenance 84230557 Z00.00 [id number] Health Maintenanc e FemaleA) Patient was counseled on healthy diet, exercise and nutrition due to BMI of 36.4 B) ScreeningL ast Mammogram: start at age 50 stop at 74Date: 10/10/2024R esult: BIRADS-2Ne xt: 10/2025 Last Pap smear: start at age 21 to age 65Date: 12/09/2020e sults: negative for any atypical cellsNext: 3 years, 12/2023 -> had one today, will request Last Colonoscop y: start at age 45-75Date: 09/16/2023 Result: diverticul osis and hemorrhoid sNext: 5 years, 07/2028 Last DEXA scan:Date: due at 66Result: ??? C) Vaccines:I nfluenza: 08/04/2024T dAP: 01/18/2019Z seda: REFUSEDPPS V23: 08/11/2013 PCV20: orderedCOV ID: 11/13/2020 , 12/05/2020 D) Routine blood work orderedE) Updated patient's history RTC in one year for annual exam or sooner if any acute complaints Vaccine de clined by parent [id number] 09 Z28.82 8323459 - shingles vaccine Administra tion of pneumococcal vaccine 83189507 Z23 Screening for malignant neoplasm of cervix 076022757 Z12.4 Fatigue 24335317 R53.83 Z00.00 Viral scre ening status 797727676 Z11.59 441385 Low back pain 286789741 M54.50 234341 - stable, improved- pt has been following with physiatry last seen on 12/14/2024 Gastroesop hageal reflux disease without esophagitis 270577189 K21.9 286122 - c/w omeprazole 20mg QD- pt would like to speak to GI for EGD, referred The following lifestyle changes are recommende d and counseled :-Losing weight: Losing weight helps people who are overweight to reduce acid reflux.-Ra ising the head of your bed six to eight inches-Bandar iding foods that trigger symptoms Avoid excessive caffeine, chocolate, alcohol, peppermint , and fatty foods. Venereal d isease screening 465017338 Z20.2 Z11.3 Z72.89 Iron deficiency 21325376 E61.1 9881 Goiter 7315337 E04.9 44697 - last ultrasound done in 2018, showed no nodules- ordered repeat ultrasound [id number] Alfredito Young MD Main Office [address] [facility] [address] [place] [address] 08/15/2025 11:32:37 08/15/2025 12:38:40 Acute headache 809142462 R51.9 [id number] off/on x 3 months - no hx to suspect caffeine / nsaid withdrawal hahas mild risk factor for sinusitis - but no pur nasal dc so less likelymost likely d/t tension type garner since garner reproduced by neck movement - see below Neck pain 75519202 M54.2 17737 check xray to r/o significan t ddd - consider pmr eval if sig dddtrial c prn m relaxer hsrec warm compress to neck/trap c gentle hep, consider massage / massager gun Moderate p ersistent asthma 797137204 J45.40 cont meds (dupixent) 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 artificial 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 - helps c nasal polyps too Health Concerns Section Related Observation LastModified by Organization Detai ls LastModified Time None Recorded Concern Status LastModified by Organization Details LastModified Time None Recorded Advance Directives Directive N: Payers Insurance Date Sequence Insurance Name Policy Number Policy Phillips Covered Member ID Phillips Member ID Guarantor Name 08/15/2025 1 [place] [employer] Catherine Benson [id number] Catherine Benson 10/20/2023 2 [place] [facility] Benson [id number] Catherine Salcido Benson 10/20/2023 1 [employer] [id number] Catherine Cabrera [id number] Catherine Salcido Benson 10/20/2023 1 [facility] (MEDICAID REPLACEMENT - HMO) [id number] Catherine Salcido Benson [id number] Catherine Salcido Benson 10/20/2023 1 [facility]) [id number] Catherine Crowenis [id number] Catherine Salcido Benson 10/20/2023 2 [facility] (MEDICAID REPLACEMENT - HMO) [id number] Catherine Cabrera [id number] Catherine Salcido Benson 10/20/2023 1 [facility]) [id number] Catherine Salcido Rennis [id number] Catherine Salcido Benson 10/20/2023 1 [facility]) [id number] Catherine Salcido Rennis [id number] Catherine Salcido Benson 10/17/2014 1 *SELF PAY* Doron liao Wong Marcelino Notes Date Note Type Note Provider Name and Address Organization Details Recorded Time 02/21/2024 text/html ROS as noted in the HPI Catherine is a 58 year old F who presented to the clinic for her annual exam. Complaints: none Is not using ASA.OTC/Herbal supplements use: MMV Gynecologic HistoryMenstrual cycle lasts 3 days, without spotting/clothsMenstru al cycle: irregular (Last occurred this month)Sexually active: yesContraception:+ abnormal papsDenies cysts, stds, fibroids Obstetric HistoryGravida: 4Para: 4AB: 0Livin, vaginalComplications: none Drug use: noneEtoh use: sociallytobacco use: nonespf/derm: Dental: once a yearEye: once a yearDiet: regularActivity: 5-6 days walking (45-50min) Addie hartley [facility] 03/06/2024 09:32:03 08/04/2024 text/html Asthma F/UReport ed by PatientHPIFor associated symptoms, patient reportscoughbut reportsno fever,no fatigue,no irritability,normal appetite,no changes in productivity, andno shortness of breath. For onset/timing, patient reportschronic. For context, patient reportssame. For modifying factors, patient reportsallergies.Follo wed both by allergy and pulmonary.ROS as noted in the HPI Catherine Benson is a 59 year old F who presented to the clinic for follow-up on her chronic conditions. Pt has no complaints at this time. KRISTEN MENDEZ MD [address] [facility] [address], [place], [address], [facility] 08/04/2024 11:25:45 11/15/2024 text/html ROS as noted in the HPI 59 y.o female presenting to the office with CC of mid to lower back pain. She correlates a non specific injury at the gym back at the end August but no other injury/inciting event since then. She consistently works out weight lifting about 3-4 times a week, with no changes since before and after the injury. She describes achy intermittent pain that she rates a 4/10. Pain is worse with extension and flexion of her back, non specific in onset - hurts when she is standing, laying or sitting. She has intermittent numbness/tingling of her toes that for years, not new in onset. She has not been treating her symptoms with anything. She denies any change in her bowel movements, burning on urination, incontinence or retention. 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 No other concerns at this time. Malini Parrish PA-C [address] [facility] [address], [place], [address], [facility] 11/15/2024 20:26:19 02/23/2025 text/html Generic HPI TemplateReported by PatientROS as noted in the HPI Catherine Benson is a 59 year old F who presented to the clinic for her annual exam. Pt denies any emergency room visits or hospitalizations during this time. 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) KRISTEN MENDEZ MD [address] [address], [place], [address], [facility] 02/23/2025 14:05:08 08/15/2025 text/html headache off and on for x3 months - frontal garner+ h/o sinusitis+ h/o sinus polyps - on dupixent from artificial 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 - helps c nasal polypsno pur nasal dc, tooth/jaw painno change in diet - one cup decaf qduses prn motrin - infrequentlyuses ns spray, montelukastdoes have some neck painno UE tingling/weaknessno pnd/cough Malini Parrish PA-C [address] [facility] [address], [place], [address], [facility] 08/15/2025 12:50:13 OBGyn Episode No OBEpisode recorded.
--- OUTSIDE RECORDS SUMMARY | 2025-09-13 22:48 | XMS_ITS | Continuity of Care Document ---
Author Organization [facility], Main Office Address [address] [facility] [address] [place] [id number] Care Team Providers Care Client Evaluator Name Role Phone IAM PHILLIPS Haulage Boss YESICA ASCENCIO Piano Case Maker CHANCE MORENO Sexual Assault Nurse ROOPA GONZALEZ Correction Officer [phone] JOSE GUADALUPE PRATT Sports Medicine WILLIAM MOREIRA Medical Oncologist TARA TYLER Primary Care Provider SHAHAB RAY Drum Barker Operator BERTRAND PARRISH Primary Care Provider Assessment No assessment recorded. Plan of Treatment Reminders Order Date Submit Date Provider Last Modified By Organization Details Last Modified Time Details Appointments None recorde d. Lab None recorde d. Referral None recorde d. Procedures None recorde d. Surgeries None recorde d. Imaging XR, cervica l spine [facility]24 [facility] [address] [facility], [place], [address], 5 10:20:26 Medication Orders cyclobe nzaprin e 5 mg tablet 2024 025 [id number], [address] [place] [address], [address], 5 12:34:47 Patient TargetsNo targets recorded. Patient Instructions Encounter Date Encounter Id Patient Instructions Last Modified By Organization Details Last Modified Time 08/15/2025 [id number] neck pain: care instructions pmadden Not available [...] Not available 08/15/2025 12:48:59 Reason for Referral None Reported. Problems Name Problem SNOMED Code Status Onset Date Resolution Date Notes Provider Name and Address Organization Details Recorded Time Dysfunct ional uterine bleeding Completed 09/22/2017 MARTHA Luna, [facility] 7 13:31:19 Constipa tion 39062524 Completed 09/22/2017 MARTHA Luna, [facility] 7 13:31:16 Dysmenor jerrod 879403114 Completed 09/22/2017 MARTHA Luna, [facility] 7 13:31:25 Acute pharyngi tis 488911331 Completed 200804/17/2014 RECORDED 11/01/19 09 10:21AM BY ILIANA BA MA, PINKY ON/ADDEN DUM Not Available [facility] 4 13:37:59 Screenin g for malignan t neoplasm of breast Completed 200804/17/2014 RECORDED 11/01/19 09 10:21AM BY ILIANA BA MA, PINKY ON/ADDEN DUM Not Available [facility] 4 13:38:00 Chest pain 60323498 Completed 200804/17/2014 RECORDED 11/01/19 09 10:21AM BY ILIANA BA MA, ANNOTRAMIREZ ON/ADDEN DUM Not Available [facility] 4 13:38:00 Infectiv e hepatiti s immuniza tion Completed 200804/17/2014 RECORDED 11/01/19 09 10:21AM BY ILIANA BA MA, ANNOTATI ON/ADDEN DUM Not Available [facility] 4 13:38:01 Administ ration of measles and mumps and rubella vaccine Completed 200804/17/2014 RECORDED 11/01/19 09 10:21AM BY ILIANA BA MA, ANNOTATI ON/ADDEN DUM Not Available [facility] 4 13:38:01 Acute pharyngi tis [id number] Completed 200805/10/2014 RECORDED 11/01/19 09 10:21AM BY ILIANA BA MA, PINKY ON/ADDEN DUM Not Available [facility] 4 12:08:39 Screenin g for malignan t neoplasm of breast Completed 200805/10/2014 RECORDED 11/01/19 09 10:21AM BY ILIANA BA MA, PINKY ON/ADDEN DUM Not Available [facility] 4 12:08:40 Chest pain [id number] Completed 200805/10/2014 RECORDED 11/01/19 09 10:21AM BY ILIANA BA MA, ANNOTATI ON/ADDEN DUM Not Available [facility] 4 12:08:40 Infectiv e hepatiti s immuniza tion Completed 200805/10/2014 RECORDED 11/01/19 09 10:21AM BY ILIANA BA MA, ANNOTATI ON/ADDEN DUM Not Available [facility] 4 12:08:41 Administ ration of measles and mumps and rubella vaccine Completed 200805/10/2014 RECORDED 11/01/19 09 10:21AM BY ILIANA BA MA, ANNOTATI ON/ADDEN DUM Not Available [facility] 4 12:08:41 Acute pharyngi tis [id number] Completed 200805/11/2014 RECORDED 11/01/19 09 10:21AM BY ILIANA BA MA, ANNOTATI ON/ADDEN DUM Not Available [facility] 4 03:31:30 Screenin g for malignan t neoplasm of breast Completed 200805/11/2014 RECORDED 11/01/19 09 10:21AM BY ILIANA BA MA, ANNOTRAMIREZ ON/ADDEN DUM Not Available [facility] 4 03:31:30 Chest pain 62471081 Completed 200805/11/2014 RECORDED 11/01/19 09 10:21AM BY ILIANA BA MA, PINKY ON/ADDEN DUM Not Available [facility] 4 03:31:30 Infectiv e hepatiti s immuniza tion Completed 200805/11/2014 RECORDED 11/01/19 09 10:21AM BY ILIANA BA MA, DEBORAHATI ON/ADDEN DUM Not Available [facility] 4 03:31:30 Administ ration of measles and mumps and rubella vaccine Completed 200805/11/2014 RECORDED 11/01/19 09 10:21AM BY ILIANA BA MA, ANNOTATI ON/ADDEN DUM Not Available [facility] 4 03:31:30 Abdomina l tenderne ss [id number] Completed 201104/17/2014 RECORDED 06/29/20 12 9:58AM BY ILIANA BA MA, DEBORAHATI ON/ADDEN DUM Not Available [facility] 4 13:37:59 Clinical finding Completed 201104/17/2014 RECORDED 06/29/20 12 9:58AM BY ILIANA BA MA, PINKY ON/ADDEN DUM Not Available [facility] 4 13:37:59 Amenorrh ea 83511338 Completed 201104/17/2014 RECORDED 06/29/20 12 9:58AM BY ILIANA BA MA, ANNOTATI ON/ADDEN DUM Not Available [facility] 4 13:37:59 Acute sinusiti s 96437218 Completed 201104/17/2014 RECORDED 06/29/20 12 9:58AM BY ILIANA BA MA, ANNOTATI ON/ADDEN DUM Not Available [facility] 4 13:37:59 Screenin g for malignan t neoplasm of cervix Completed 201104/17/2014 RECORDED 06/29/20 12 9:57AM BY ILIANA BA MA, ANNOTATI ON/ADDEN DUM Not Available [facility] 4 13:38:00 Dysuria 22976739 Completed 201104/17/2014 RECORDED 06/29/20 12 9:58AM BY ILIANA BA MA, PINKY ON/ADDEN DUM Not Available [facility] 4 13:38:00 General examinat ion of patient Completed 201104/17/2014 RECORDED 06/29/20 12 9:58AM BY ILIANA BA MA, PINKY ON/ADDEN DUM Not Available [facility] 4 13:38:00 Well child [id number] Completed 201104/17/2014 RECORDED 06/29/20 12 9:58AM BY ILIANA BA MA, PINKY ON/ADDEN DUM Not Available [facility] 4 13:38:01 Headache [id number] Completed 201104/17/2014 RECORDED 06/29/20 12 9:57AM BY ILIANA BA MA, PINKY ON/ADDEN DUM Not Available [facility] 4 13:38:01 Eruption [id number] Completed 201104/17/2014 IMPRESSI ON: LOOKS LIKE SCABIES, TX WITH ELIMSUSAN, HIRAM CALLING IT IN, INSTRUCT IONS ABOUT CLEANING SHEETS.; RECORDED 06/29/20 12 9:57AM BY ILIANA BA MA, PINKY ON/ADDEN DUM Not Available [facility] 4 13:38:01 Hemorrha ge of rectum and anus 205845384 Completed 201104/17/2014 RECORDED 06/29/20 12 9:58AM BY ILIANA BA MA, ANNOTATI ON/ADDEN DUM Not Available [facility] 4 13:38:01 Chronic sinusiti s 88069094 Completed 201104/17/2014 RECORDED 06/29/20 12 9:58AM BY ILIANA BA MA, ANNOTATI ON/ADDEN DUM Not Available [facility] 4 13:38:02 Trichomo nal vulvovag initis 51917624 Completed 201104/17/2014 RECORDED 06/29/20 12 9:57AM BY ILIANA BA MA, PINKY ON/ADDEN DUM Not Available [facility] 4 13:38:02 Vaginiti s and vulvovag initis Completed 201104/17/2014 IMPRESSI ON: SOME ITCHING CHECK FOR INFECTIO N; RECORDED 06/29/20 12 9:58AM BY ILIANA BA MA, PINKY ON/ADDEN DUM Not Available [facility] 4 13:38:02 Abdomina l tenderne ss [id number] Completed 201105/10/2014 RECORDED 06/29/20 12 9:58AM BY ILIANA BA MA, PINKY ON/ADDEN DUM Not Available [facility] 4 12:08:39 Clinical finding Completed 201105/10/2014 RECORDED 06/29/20 12 9:58AM BY ILIANA BA MA, PINKY ON/ADDEN DUM Not Available [facility] 4 12:08:39 Amenorrh ea 77221434 Completed 201105/10/2014 RECORDED 06/29/20 12 9:58AM BY ILIANA BA MA, ANNOTATI ON/ADDEN DUM Not Available [facility] 4 12:08:39 Acute sinusiti s 14222024 Completed 201105/10/2014 RECORDED 06/29/20 12 9:58AM BY ILIANA BA MA, ANNOTATI ON/ADDEN DUM Not Available [facility] 4 12:08:39 Screenin g for malignan t neoplasm of cervix Completed 201105/10/2014 RECORDED 06/29/20 12 9:57AM BY ILIANA BA MA, ANNOTRAMIREZ ON/ADDEN DUM Not Available [facility] 4 12:08:40 Dysuria 90386895 Completed 201105/10/2014 RECORDED 06/29/20 12 9:58AM BY ILIANA BA MA, PINKY ON/ADDEN DUM Not Available [facility] 4 12:08:40 General examinat ion of patient Completed 201105/10/2014 RECORDED 06/29/20 12 9:58AM BY ILIANA BA MA, PINKY ON/ADDEN DUM Not Available [facility] 4 12:08:40 Well child [id number] Completed 201105/10/2014 RECORDED 06/29/20 12 9:58AM BY ILIANA BA MA, ANNOTRAMIREZ ON/ADDEN DUM Not Available [facility] 4 12:08:40 Headache [id number] Completed 201105/10/2014 RECORDED 06/29/20 12 9:57AM BY ILIANA BA MA, ANNOTRAMIREZ ON/ADDEN DUM Not Available [facility] 4 12:08:40 Eruption [id number] Completed 201105/10/2014 IMPRESSI ON: LOOKS LIKE SCABIES, TX WITH ELIMITE, HIRAM CALLING IT IN, INSTRUCT IONS ABOUT CLEANING SHEETS.; RECORDED 06/29/20 12 9:57AM BY ILIANA BA MA, ANNOTRAMIREZ ON/ADDEN DUM Not Available [facility] 4 12:08:41 Hemorrha ge of rectum and anus 077682473 Completed 201105/10/2014 RECORDED 06/29/20 12 9:58AM BY ILIANA BA MA, ANNOTATI ON/ADDEN DUM Not Available [facility] 4 12:08:41 Chronic sinusiti s 61037277 Completed 201105/10/2014 RECORDED 06/29/20 12 9:58AM BY ILIANA BA MA, ANNOTATI ON/ADDEN DUM Not Available [facility] 4 12:08:41 Trichomo nal vulvovag initis 81813794 Completed 201105/10/2014 RECORDED 06/29/20 12 9:57AM BY ILIANA BA MA, ANNOTATI ON/ADDEN DUM Not Available [facility] 4 12:08:41 Vaginiti s and vulvovag initis Completed 201105/10/2014 IMPRESSI ON: SOME ITCHING CHECK FOR INFECTIO N; RECORDED 06/29/20 12 9:58AM BY ILIANA BA MA, PINKY ON/ADDEN DUM Not Available [facility] 4 12:08:41 Abdomina l tenderne ss [id number] Completed 201105/11/2014 RECORDED 06/29/20 12 9:58AM BY ILIANA BA MA, PINKY ON/ADDEN DUM Not Available [facility] 4 03:31:30 Clinical finding Completed 201105/11/2014 RECORDED 06/29/20 12 9:58AM BY ILIANA BA MA, ANNOTRAMIREZ ON/ADDEN DUM Not Available [facility] 4 03:31:30 Amenorrh ea 40534408 Completed 201105/11/2014 RECORDED 06/29/20 12 9:58AM BY ILIANA BA MA, ANNOTRAMIREZ ON/ADDEN DUM Not Available [facility] 4 03:31:30 Acute sinusiti s 27131598 Completed 201105/11/2014 RECORDED 06/29/20 12 9:58AM BY ILIANA BA MA, DEBOARHATI ON/ADDEN DUM Not Available [facility] 4 03:31:30 Screenin g for malignan t neoplasm of cervix Completed 201105/11/2014 RECORDED 06/29/20 12 9:57AM BY ILIANA BA MA, PINKY ON/ADDEN DUM Not Available [facility] 4 03:31:30 Dysuria [id number] Completed 201105/11/2014 RECORDED 06/29/20 12 9:58AM BY ILIANA BA MA, PINKY ON/ADDEN DUM Not Available [facility] 4 03:31:30 General examinat ion of patient Completed 201105/11/2014 RECORDED 06/29/20 12 9:58AM BY ILIANA BA MA, PINKY ON/ADDEN DUM Not Available [facility] 4 03:31:30 Well child [id number] Completed 201105/11/2014 RECORDED 06/29/20 12 9:58AM BY ILIANA BA MA, PINKY ON/ADDEN DUM Not Available [facility] 4 03:31:30 Headache [id number] Completed 201105/11/2014 RECORDED 06/29/20 12 9:57AM BY ILIANA BA MA, PINKY ON/ADDEN DUM Not Available [facility] 4 03:31:30 Eruption [id number] Completed 201105/11/2014 IMPRESSI ON: LOOKS LIKE SCABIES, TX WITH ELIMITE, HIRAM CALLING IT IN, INSTRUCT IONS ABOUT CLEANING SHEETS.; RECORDED 06/29/20 12 9:57AM BY ILIANA BA MA, PINKY ON/ADDEN DUM Not Available [facility] 4 03:31:30 Hemorrha ge of rectum and anus 124753758 Completed 201105/11/2014 RECORDED 06/29/20 12 9:58AM BY ILIANA BA MA, ANNOTATI ON/ADDEN DUM Not Available [facility] 4 03:31:30 Chronic sinusiti s 48523344 Completed 201105/11/2014 RECORDED 06/29/20 12 9:58AM BY ILIANA BA MA, ANNOTATI ON/ADDEN DUM Not Available [facility] 4 03:31:31 Trichomo nal vulvovag initis 66257736 Completed 201105/11/2014 RECORDED 06/29/20 12 9:57AM BY ILIANA BA MA, ANNOTATI ON/ADDEN DUM Not Available [facility] 4 03:31:31 Vaginiti s and vulvovag initis Completed 201105/11/2014 IMPRESSI ON: SOME ITCHING CHECK FOR INFECTIO N; RECORDED 06/29/20 12 9:58AM BY ILIANA BA MA, ANNOTATI ON/ADDEN DUM Not Available [facility] 4 03:31:31 Asthma [id number] Completed 201104/17/2014 IMPRESSI ON: EXACERBA TION, IMPROVED SINCE ER DISCHARG E 06/13/12 BUT NOT RESOLVED , WILL INITIATE TAPERING COURSE OF PREDNISO NE WITH PCP FU AT [facility]TI ON; RECORDED 07/20/20 12 8:40AM BY MILTON MCDONALD MA, DEBORAHATI ON/ADDEN DUM Lady hartley MA - [facility] 1 13:23:07 Renewal of prescrip tion Completed 201104/17/2014 RECORDED 07/20/20 12 8:40AM BY MILTON MCDONALD MA, ANNOTATI ON/ADDEN DUM Not Available [facility] 4 13:38:01 Asthma [id number] Completed 201105/10/2014 IMPRESSI ON: EXACERBA TION, IMPROVED SINCE ER DISCHARG E 06/13/12 BUT NOT RESOLVED , WILL INITIATE TAPERING COURSE OF PREDNISO NE WITH PCP FU AT COMPLETI ON; RECORDED 07/20/20 12 8:40AM BY MILTON MCDONALD MA, ANNOTATI ON/ADDEN DUM Lady hartley [facility] 1 13:23:07 Renewal of prescrip tion Completed 201105/10/2014 RECORDED 07/20/20 12 8:40AM BY MILTON MCDONALD MA, ANNOTATI ON/ADDEN DUM Not Available [facility] 4 12:08:41 Asthma [id number] Completed 201105/11/2014 IMPRESSI ON: EXACERBA TION, IMPROVED SINCE ER DISCHARG E 06/13/12 BUT NOT RESOLVED , WILL INITIATE TAPERING COURSE OF PREDNISO NE WITH PCP FU AT [facility] ON; RECORDED 07/20/20 12 8:40AM BY MILTON MCDONALD MA, ANNOTATI ON/ADDEN DUM Lady hartley [facility] 1 13:23:07 Renewal of prescrip tion Completed 201105/11/2014 RECORDED 07/20/20 12 8:40AM BY MILTON MCDONALD MA, ANNOTATI ON/ADDEN DUM Not Available [facility] 4 03:31:30 Anemia [id number] Completed 201104/17/2014 RECORDED 08/18/20 12 2:34PM BY PINKY LUNA/ADDEN DUM Lady hartley [facility] 7 14:05:12 Acute upper respirat ory infectio n [id number] Completed 201204/17/2014 IMPRESSI ON: VIRAL. OFFICE WILL CALL HER ON WEDNESDAY TO CHECK IN. DO SINUS RINSE, SUDAFED. CONTINUE FLONASE; RECORDED 10/29/19 13 9:41AM BY MILTON MCDONALD MA, ANNOTATI ON/ADDEN DUM Not Available [facility] 4 13:37:59 Patient status finding [id number] Completed 201204/17/2014 RECORDED 10/29/19 13 9:41AM BY MILTON MCDONALD MA, ANNOTATI ON/ADDEN DUM MARTHA Luna MA - [facility] 7 13:31:13 Acute upper respirat ory infectio n [id number] Completed 201205/10/2014 IMPRESSI ON: VIRAL. OFFICE WILL CALL HER ON WEDNESDAY TO CHECK IN. DO SINUS RINSE, SUDAFED. CONTINUE FLONASE; RECORDED 10/29/19 13 9:41AM BY MILTON MCDONALD MA, ANNOTATI ON/ADDEN DUM Not Available [facility] 4 12:08:39 Acute upper respirat ory infectio n 68561653 Completed 201205/11/2014 IMPRESSI ON: VIRAL. OFFICE WILL CALL HER ON WEDNESDAY TO CHECK IN. DO SINUS RINSE, SUDAFED. CONTINUE FLONASE; RECORDED 10/29/19 13 9:41AM BY MILTON MCDONALD MA, ANNOTATI ON/ADDEN DUM Not Available [facility] 4 03:31:30 Cough [id number] Completed 201204/17/2014 RECORDED 12/16/19 13 1:45PM BY MILTON MCDONALD MA, ANNOTATI ON/ADDEN DUM Not Available [facility] 4 13:38:00 Cough [id number] Completed 201205/10/2014 RECORDED 12/16/19 13 1:45PM BY MILTON MCDONALD MA, ANNOTATI ON/ADDEN DUM Not Available [facility] 4 12:08:40 Cough [id number] Completed 201205/11/2014 RECORDED 12/16/19 13 1:45PM BY MILTON MCDONALD MA, ANNOTATI ON/ADDEN DUM Not Available [facility] 4 03:31:30 Pain in limb 64650415 Completed 201204/17/2014 IMPRESSI ON: PT WITH APPROX [...] 05/06/20 13 9:27AM BY SONIA ADAMES MA, DEBORAHATI ON/ADDEN DUM Not Available [facility] 4 13:38:01 Pain in limb [id number] Completed 201205/10/2014 IMPRESSI ON: PT WITH APPROX 1 MO OF L NECK, SHOULDER AND ARM PAIN, PROGRESS IVELY WORSE MORE RECENT. INITIALL Y STARTED WITH NEW BOXING REGIMEN, MORE DISTAL THOUGH IN HAND. REVIEWED ER NOTES FROM MARIA ELENA FONTAINE REVEALANA LAURA G L SUBDELTO ID CALCIFIC BURSITIS . [...] 05/06/20 13 9:27AM BY SONIA ADAMES MA, DEBORAHATI ON/ADDEN DUM Not Available [facility] 4 12:08:40 Pain in limb [id number] Completed 201205/11/2014 IMPRESSI ON: PT WITH APPROX 1 MO OF L NECK, SHOULDER AND ARM PAIN, PROGRESS IVELY WORSE MORE RECENT. INITIALL Y STARTED WITH NEW BOXING REGIMEN, MORE DISTAL THOUGH IN HAND. REVIEWED ER NOTES FROM ISABEL Crespo, XRAY REVEALIN G L SUBDELTO ID [...] ADAMES MA, PINKY ON/ADDEN DUM Not Available [facility] 4 03:31:30 Active or passive immuniza tion Completed 201204/17/2014 RECORDED 08/11/20 13 2:55PM BY FABIAN WALDEN, OFFICE VISIT Not Available [facility] 4 13:38:01 Active or passive immuniza tion Completed 201205/10/2014 RECORDED 08/11/20 13 2:55PM BY FABIAN WALDEN, OFFICE VISIT Not Available [facility] 4 12:08:41 Active or passive immuniza tion Completed 201205/11/2014 RECORDED 08/11/20 13 2:55PM BY FABIAN WALDEN, OFFICE VISIT Not Available [facility] 4 03:31:30 Malaise and fatigue 552315040 Completed 201204/17/2014 RECORDED 09/29/20 13 7:43AM BY SONIA ADAMES MA, PINKY ON/ADDEN DUM Not Available [facility] 4 13:38:00 Influenz a vaccine needed [id number] 06 Completed 201204/17/2014 IMPRESSI ON: PT EATS EGGS AND HAS NOT PROBLEM, HAS NOT TAKEN FLU SHOT IN THE PAST, A TEEN WAS TOLD HAD EGG ALLERGY BUT STATED EATS EGGS NO PROBLEM, ILL WITH PNEUMONI A, ASTHMA LAST EYAR, PT TO TAKE FLU SHOT; RECORDED 09/29/20 13 7:43AM BY SONIA ADAMES MA, PINKY ON/ADDEN DUM Not Available [facility] 4 13:38:00 Adult health examinat ion Completed 201204/17/2014 IMPRESSI ON: PT IS DUE FOR MAMMO SHE WILL SET UP APPT, PAP IS UTD, NO ROLE FOR COLONOSC OPY, NEEDS TO EXERCISE ; RECORDED 09/29/20 13 7:43AM BY SONIA ADAMES MA, DEBORAHATI ON/ADDEN DUM Not Available [facility] 4 13:38:00 Candidal vulvovag initis 50195390 Completed 201204/17/2014 IMPRESSI ON: NO INFECTIO N NOW BUT SHE SAYS THAT SHE GETS YEAST INFECTIO NS WHEN ON ABX; RECORDED 09/29/20 13 7:44AM BY SONIA ADAMES MA, ANNOTATI ON/ADDEN DUM Not Available [facility] 4 13:38:02 Malaise and fatigue [id number] Completed 201205/10/2014 RECORDED 09/29/20 13 7:43AM BY SONIA ADAMES MA, ANNOTATI ON/ADDEN DUM Not Available [facility] 4 12:08:40 Influenz a vaccine needed [id number] 06 Completed 201205/10/2014 IMPRESSI ON: PT EATS EGGS AND HAS NOT PROBLEM, HAS NOT TAKEN FLU SHOT IN THE PAST, A TEEN WAS TOLD HAD EGG ALLERGY BUT STATED EATS EGGS NO PROBLEM, ILL WITH PNEUMONI A, ASTHMA LAST EYAR, PT TO TAKE FLU SHOT; RECORDED 09/29/20 13 7:43AM BY SONIA ADAMES MA, ANNOTATI ON/ADDEN DUM Not Available [facility] 4 12:08:40 Adult health examinat ion Completed 201205/10/2014 IMPRESSI ON: PT IS DUE FOR MAMMO SHE WILL SET UP APPT, PAP IS UTD, NO ROLE FOR COLONOSC OPY, NEEDS TO EXERCISE ; RECORDED 09/29/20 13 7:43AM BY SONIA ADAMES MA, ANNOTATI ON/ADDEN DUM Not Available [facility] 4 12:08:40 Candidal vulvovag initis [id number] Completed 201205/10/2014 IMPRESSI ON: NO INFECTIO N NOW BUT SHE SAYS THAT SHE GETS YEAST INFECTIO NS WHEN ON ABX; RECORDED 09/29/20 13 7:44AM BY SONIA ADAMES MA, IPNKY ON/ADDEN DUM Not Available [facility] 4 12:08:41 Malaise and fatigue 217805837 Completed 201205/11/2014 RECORDED 09/29/20 13 7:43AM BY SONIA ADAMES MA, PINKY ON/ADDEN DUM Not Available [facility] 4 03:31:30 Influenz a vaccine needed [id number] 06 Completed 201205/11/2014 IMPRESSI ON: PT EATS EGGS AND HAS NOT PROBLEM, HAS NOT TAKEN FLU SHOT IN THE PAST, A TEEN WAS TOLD HAD EGG ALLERGY BUT STATED EATS EGGS NO PROBLEM, ILL WITH PNEUMONI A, ASTHMA LAST EYAR, PT TO TAKE FLU SHOT; RECORDED 09/29/20 13 7:43AM BY SONIA ADAMES MA, PINKY ON/ADDEN DUM Not Available [facility] 4 03:31:30 Adult health examinat ion Completed 201205/11/2014 IMPRESSI ON: PT IS DUE FOR MAMMO SHE WILL SET UP APPT, PAP IS UTD, NO ROLE FOR COLONOSC OPY, NEEDS TO EXERCISE ; RECORDED 09/29/20 13 7:43AM BY SONIA ADAMES MA, ANNOTRAMIREZ ON/ADDEN DUM Not Available [facility] 4 03:31:30 Candidal vulvovag initis 66285721 Completed 201205/11/2014 IMPRESSI ON: NO INFECTIO N NOW BUT SHE SAYS THAT SHE GETS YEAST INFECTIO NS WHEN ON ABX; RECORDED 09/29/20 13 7:44AM BY SONIA ADAMES MA, PINKY ON/ADDEN DUM Not Available [facility] 4 03:31:31 Allergic rhinitis 17480919 Active 2013 Iliana Deutsch-MARTHA Alarcon MA - [facility] 8 11:38:04 Anemia 342968011 Completed 201309/22/2017 IMPRESSI ON: CHRONIC FROM MENSTRUA L BLOOD LOSS, RECHECK LABS AND OCNTINUE IRON, IF NL CBC ADN IRON REDUCE IRON TO ONCE A DAY; RECORDED 12/29/19 14 9:45AM BY LADY Abdi MD, OFFICE VISIT Lady hartley [facility] 7 14:05:12 Patient status finding [id number] Completed 201309/22/2017 RECORDED 12/29/19 14 8:44AM BY FABIAN WALDEN, OFFICE VISIT MARTHA Luna [facility] 7 13:31:13 Intrinsi c asthma 133210814 Completed 201309/22/2017 IMPRESSI ON: PT NEEDS TO USE ADVAIR BID AND GET BETTER CONTROL SO CAN EXERCISE OUTSIDE, SHE DOES NOT LIKE SPIRIVA. 3 MONTH FOLLOWUP ; RECORDED 12/29/19 14 9:46AM BY LADY Abdi MD, OFFICE VISIT Lady hartley [facility] 7 14:05:05 Acute asthma [id number] Completed 201309/22/2017 IMPRESSI ON: PT NOTES FOR 3 DAYS SHE CAUGHT A COLD AND IS WHEEZING FOR THE PAST DAY. PT FEELS LIEK SHE NEEDS PREDNISO NE, WILL GIVE HER 40MG A DAY, IF SHE IS NOT IMPROVIN G BY LATER TOMORROW SHE WILL GET SEEN HERE OR AT URGENT CARE; RECORDED 12/29/19 14 8:44AM BY FABIAN WALDEN, OFFICE VISIT Lady hartley [facility] 7 14:05:14 Asthma 727405518 Completed 201307/20/2019 Lady hartley [facility] 1 13:23:07 Pure hypercho lesterol emia 475354723 Completed 201309/22/2017 RECORDED 12/29/19 14 8:44AM BY FABIAN WALDEN, OFFICE VISIT Lady hartley [facility] 7 14:05:39 Iron deficien cy anemia secondar y to inadequa te dietary iron intake 530055985 Completed 201309/22/2017 IMPRESSI ON: HX OF ANEMIA, NOT ON IRON, HEAVY MENSES WILL CHECK CBC; RECORDED 12/29/19 14 8:44AM BY FABIAN WALDEN, OFFICE VISIT Lady Johnny shivani hartley, [facility] 7 14:05:18 Shoulder joint pain 932347817 Completed 201309/22/2017 IMPRESSI ON: FINALLY BETTER; RECORDED 12/29/19 14 8:44AM BY FABIAN WALDEN, OFFICE VISIT Lady Johnny shivani hartley, [facility] 7 14:05:08 Peripher al vertigo 96804075 Completed 201309/22/2017 RECORDED 12/29/19 14 8:44AM BY FABIAN WALDEN, OFFICE VISIT Lady DuboseLore shivani hartley, [facility] 7 14:05:21 Anemia due to unknown mechanis m 47593775 Completed 201907/09/2021 Lady Lopez-Marion shivani null, [facility] 13:24:54 SARS-CoV -2 Completed 201907/09/2021 Lady Lopez-Marion kingstono null, [facility] 13:24:45 Asthma 697146672 Completed 202001/10/2021 Lady Lopez-Marion shivani null, [facility] 13:23:07 Moderate persiste nt asthma 540955266 Active 2020 Ladyvasiliy Lopez-Marion brooksshivani null, [facility] 13:24:03 Eosinoph il count above referenc e range 186177113 Active 2022 Alfredito Young MD [address], [place], [id number] , [facility] 3 16:57:07 Hyperlip idemia 25764852 Active 2022 TARA TYLER MD [address], [place], [phone] , [facility] 3 09:24:07 Obesity 467887728 Active 2022 Addie Mejiacarlos hartley, [facility] 3 11:19:32 Bilatera l hearing loss [id number] Active 2022 Addie Viera null, [facility] 3 11:19:56 Solitary nodule of lung [id number] Active 2023 Bertrand Parrish PA-C [address], [place], [address] , [facility] 4 09:18:13 Strain of back muscle [id number] Active 2024 Laura hartley, [facility] 5 16:30:51 Problem Notes None recorded. Procedures Surgical History Date Name Laterality Status Provider Name and Address Organization Details Recorded Time 10/10/19 25 Most Recent Mammogram completed Constanza Blackman [facility] 10/11/2024 10:05:53 09/16/20 23 Colonoscopy completed Constanza Blackman [facility] 09/16/2023 08:42:24 07/24/20 21 Mammogram screening completed Janie Resendiz [facility] 10/01/2021 11:25:56 12/10/19 21 Date of Last Pap Smear completed Samaria Morales [facility] 12/11/2020 15:57:47 07/22/20 18 Date of Last Colonoscopy completed Fabian Walden MA [facility] 01/10/2021 13:11:02 05/06/19 99 Tubal Ligation completed Fabian Walden MA [facility] 02/06/2022 15:00:57 06/04/19 78 Tonsillectomy completed Fabian Walden MA [facility] 02/06/2022 15:00:57 Tonsillectomy completed Fabian amanda MA [facility] 02/06/2022 15:00:57 Tubal Ligation completed Fabian atkinson MA [facility] 02/06/2022 15:00:57 Imaging Results None recorded. Procedure Notes None recorded. Medical Equipment None Reported. Allergies Allergen ID Allergen Name Allergen Category Reaction Reaction Severity Criticality Documentation Date Start Date Code Code System Note Provider Name and Address Organization Details Recorded Time 42437 peach food rash Not available Not available 02/17/2023 MARTHA Hernandez [facility] 3 08:36:43 32782 pear preparati on food rash Not available Not available 02/17/2023 40905 25 RxNorm MARTHA Hernandez [facility] 3 08:36:51 76263 Tezspire medicatio n rash Not available Not available 11/15/2024 76912 96 RxNorm MARTHA Valle [facility] 5 16:00:57 Medications Name Sig Start [...] completed RECORDED 03/26/20 10 5:18PM BY PINKY SONI ON/BINDU PEACOCK; Not Available Not Available Not [...] 2013 active RECORDED 12/29/19 14 9:47AM BY LADY Abdi MD, OFFICE VISIT; Not Available Not [...] completed RECORDED 03/26/20 10 5:18PM BY PINKY SONI ON/BINDU DUM; Not Available Not Available Not Available diclofena [...] Available clobetaso l 0.05 % topical ointment 07/22 completed Not Available Not Available Not [...] 08/20 completed RECORDED 11/05/19 10 11:34AM BY LADY Abdi MD, MEDICATI ON AUTO-DANAY CTIVATIO N; Not Available Not Available Not Available albuterol (refill) 90 mcg/actua tion aerosol inhaler Q4H PRN 04/10 completed RECORDED 04/10/20 10 1:48PM BY VIK PENA, ANNOTATI ON/BINDU PEACOCK;THIS ORDER DISCONTI NUED PER [facility]. Not Available Not Available Not Available [...] 03/11 completed RECORDED 03/11/20 12 3:28PM BY FABIAN WALDEN, OFFICE VISIT; Not Available Not Available Not Available Amoxil BID 11/15 completed RECORDED 12/06/19 09 11:44AM BY LADY Abdi MD, MEDICATI ON AUTO-DANAY CTIVATIO N; [...] ctor 1 injectio n once a month 10/24 /2022 completed Not Available Not Available Not Available Laurent Ellipta 200 mcg-62.5 mcg-25 mcg powder for [...] Updated DateTime 5 170.18 cm 38.5 kg/m2 342008. 72 g 83 /min 97 % 98 [degF] 115/71 mm[Hg] Tatyana Fermin MA [facility] 5 11:47:15 Social History Question Answer Notes LastModified by Organizat ion Details LastModified Time Tobacco Smoking Status [facility] 14:45:56 Do You Have An Advance Directive? No [email or web address] Information not available 02/06/2022 Is Blood Transfusion Acceptable In An Emergency? Yes [email or web address] Information not available 02/06/2022 What Is Your Level Of Caffeine Consumption? Moderate [email or web address] Information not available 02/06/2022 How Much Tobacco Do You Chew? None Information not available 11/29/2017 What Type Of Diet Are You Following? REGULAR [email or web address] Information not available 10/17/2014 Which Illicit Or Recreational Drugs Have You Used? None Information not available 11/29/2017 Live Alone Or With Others? With Others [email or web address] Information not available 02/06/2022 Do You Take [...] Or Greater Than 100 Degrees Fahrenheit? No [email or web address] Information not available 04/01/2020 Are You Or Anyone In Your Household A Health Care Provider Or Emergency Responder? No [email or web address] Information not available 04/01/2020 To The Best Of Your Knowledge Have You Been In Close Proximity To Any Individual Who Tested Positive For COVID-19? No [email or web address] Information not available 04/01/2020 Have You Recently Traveled To A COVID-19 High Risk Area Or Gathering In The Last 10 Days? No [email or web address] Information not available 01/10/2021 What Was The Date Of Your Most Recent Tobacco Screening? 02/23/2025 [email or web address] Information not available 02/23/2025 How Many Children Do You Have? 4 [email or web address] Information not available 10/17/2014 Do You Use Protection During Sex? Always [email or web address] Information not available 02/06/2022 Do You Use Your Seat Belt Or Car Seat Routinely? Yes [email or web address] Information not available 02/06/2022 Seat Belts Used Routinely Yes [email or web address] Information not available 02/06/2022 Are You Sexually Active? No [email or web address] Information not available 02/06/2022 Smoke Alarm In Home Yes [email or web address] Information not available 02/06/2022 Do You Have Smoke And Carbon Monoxide Detectors In Your Home? Yes [email or web address] Information not available 02/06/2022 At What Age Did You Start Smoking Tobacco? 0 Information not available 11/29/2017 Are You Passively Exposed To Smoke? No Information no t available 11/29/2017 How Much Tobacco Do You Smoke? No Information not available 11/29/2017 General Stress Level Low [email or web address] Information not available 02/06/2022 Do You Use Sunscreen Routinely? Yes Information not available 10/17/2014 How Many Years Have You Smoked Tobacco? 0 Information not available 11/29/2017 Sex: Unknown Functional Status Question Answer Note LastModified by Organizat ion Details LastModified Time Do you use any illicit or recreational drugs? No Information not available 02/17/2023 What is your level of alcohol consumption? Occasional [email or web address] Information not available 10/17/2014 Do you or have you ever used smokeless tobacco? Never used smokeless tobacco [email or web address] Information not available 01/10/2021 Are you currently employed? Yes [email or web address] Information not available 10/17/2014 Are you able to walk independently without assistance or assistive devices? YESWOREST [email or web address] Information not available 02/06/2022 Are you able to care for yourself independently? 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 Never used electronic cigarettes Information not available 02/06/2022 What is your exercise level? Moderate 5-6 days a week Information not available 02/17/2023 Mental Status None recorded. Family History Relationship Description Onset Age of this Age Resolved Age Notes LastModified by Organization Details LastModified Time Maternal Grandmother Hypertensive disorder [email or web address] Not available 10/17 14:33:23 Father Diabetes mellitus [email or web address] Not available 10/17 14:33:23 Father Asthma [email or web address] Not available 02/06/2022 15:00:44 Father Allergy [email or web address] Not availabl e 02/06/2022 15:00:44 Father Cerebrovascu lar accident [email or web address] Not available 08:37:36 Mother Polyp of colon [email or web address] Not available 02/06 15:00:44 Mother Anemia [email or web address] Not available 02/06/2022 15:00:44 Son Asthma Not available 02/06/2022 15:00:44 Brother Diabetes mellitus [email or web address] Not available 02/06 15:00:44 Brother Asthma [email or web address] Not availabl e 02/06/2022 15:00:44 Paternal Grandmother Alzheimer's disease Not available 02/06 15:00:44 Daughter Asthma [email or web address] Not availab le 02/06/2022 15:00:44 Sister Asthma [email or web address] Not available 02/06/2022 15:00:44 Sister Anxiety disorder [email or web address] Not available 02/06 15:00:44 Notes:No FH of breast or col on cancer Medical History Condition Response Eczema Y Anemia Y Asthma Y Allergies Y Gynecological History Statement/Question Response Date of Last Pap Smear 12/09/2020 Date of Last Colonoscopy 07/22/2018 Most Recent Mammogram 10/10/2024 Most Recent Bone Density Obstetrics History GPAL:G 0 P 0 0 0 0 Immunizations Vaccine Type Date Status Note Provider Name and Address Organization Details Recorded Time COVID-19, mRNA, LNP-S, PF, 30 mcg/0.3 mL dose 021 completed MARTHA Valle [facility] 07/27/2022 14:20:01 COVID-19, mRNA, LNP-S, PF, 30 mcg/0.3 mL dose 021 completed MARTHA Valle [facility] 07/27/2022 14:20:01 Influenza, high-dose, trivalent, PF 014 completed MARTHA Valle [facility] 07/27/2022 14:20:01 Influenza, split virus, quadrivalent, PF 017 completed MARTHA Valle [facility] 07/27/2022 15:02:43 Influenza, split virus, quadrivalent, PF 019 completed MARTHA Valle [facility] 07/27/2022 15:02:44 Tdap 019 completed MARTHA Valle [facility] 07/27/2022 15:02:44 Influenza, MDCK, quadrivalent, PF 022 completed MARTHA Valle [facility] 10/08/2022 09:39:43 Hep B, adult 007 completed MARTHA Valle, [facility] 07/27/2022 14:20:01 MMR 007 completed MARTHA Valle, [facility] 07/27/2022 14:20:01 Hep B, adult 007 completed MARTHA Valle, [facility] 07/27/2022 14:20:01 influenza, seasonal, intradermal, preservative free 013 completed Not Available [facility] 04/17/2014 13:23:21 Tdap 009 completed MARTHA Valle, [facility] 07/27/2022 14:20:01 pneumococcal polysaccharide PPV23 013 completed Not Available [facility] 04/17/2014 13:23:21 zoster recombinant 023 cancelled patient objection TARA TYLER MD [address], [address] 02/17/2023 09:26:42 Influenza, split virus, trivalent, PF 024 [facility] 11:28:23 Past Encounters Encounter ID Performer Location Encounter Start Date Encounter Closed Date Diagnosis/Indication Diagnosis SNOMED-CT Code Diagnosis ICD10 Code Diagnosis IMO Codes Diagnosis Note [id number] Alfredito Young MD Main Office [address] [facility] [address] [place] [address] 08/15/2025 11:32:37 08/15/2025 12:38:40 Acute headache 353896696 R51.9 047122886 off/on x 3 months - no hx to suspect caffeine / nsaid withdrawal hahas mild risk factor for sinusitis - but no pur nasal dc so less likelymost likely d/t tension type garner since garner reproduced by neck movement - see below Neck pain 15990271 M54.2 66245 check xray to r/o significan t ddd - consider pmr eval if sig dddtrial c prn m relaxer hsrec warm compress to neck/trap c gentle hep, consider massage / massager gun Moderate p ersistent asthma 313587083 J45.40 cont meds (dupixent) 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 - helps c nasal polyps too Health Concerns Section Related Observation LastModified by Organization Detai ls LastModified Time None Recorded Concern Status LastModified by Organization Details LastModified Time None Recorded Payers Encounter Date Sequence Insurance Name Policy Number Policy Phillips Covered Member ID Phillips Member ID Guarantor Name 08/15/2025 1 [employer] [facility] 111 Catherine Benson [id number] Catherine Benson Notes Date Note Type Note Provider Name and Address Organization Details Recorded Time 08/15/2025 text/html headache off and on for x3 months - frontal garner+ h/o sinusitis+ h/o sinus polyps - on dupixent from measuring machine 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
--- OUTSIDE RECORDS SUMMARY | 2025-09-13 22:48 | XMS_ITS | Clinical Summary ---
Author Organization [facility] Address [address] [place] [address] Care Team Providers Care Mathematics Education Professor Name Role Phone Kristen Mendez MD Primary Care Provider Allergies Active Allergy Reactions Criticality Noted Date Comments Harris Rash 06/26/2025 Pear Rash 06/26/2025 Tezepelumab-Ekko Rash 06/26/2025 Medications albuterol HFA (PROAIR HFA ; PROVENTIL HFA ; VENTOLIN HFA) 90 mcg/actuation inhaler Inhale 2 puffs by mouth every 4 (four) hours if needed. Active ammonium lactate (AMLACTIN) 12 % cream PLEASE SEE ATTACHED FOR DETAILED DIRECTIONS Active dupilumab (Dupixent Syringe) 300 mg/2 mL syringe Inject 300 mL every 2 weeks by sub-q route as directed for 42 days. Active fluticasone propion-salmete roL (ADVAIR DISKUS) 500-50 mcg/dose diskus inhaler Take 1 puff by mouth 2 (two) times a day. Active fluticasone-ume clidinium-vilan terol (TRELEGY ELLIPTA) 200-62.5-25 mcg inhaler INHALE 1 PUFF INTO LUNGS DAILY Active montelukast (SINGULAIR) 10 mg tablet Take 1 tablet (10 mg total) by mouth at bedtime. Active ketoconazole (NIZORAL) 2 % cream APPLY EXTERNALLY IN BETWEEN TOES ONCE A DAY FOR 30 DAYS Active terbinafine (LamISIL) 250 mg tablet Active fluticasone propionate (FLONASE) 50 mcg/actuation nasal spray Administer 2 sprays into each nostril 1 (one) time each day. 5 Active hydrocortisone 2.5 % cream APPLY TO FACIAL RASH 2 TIMES A DAY NEEDED 01/30/202 5 Active predniSONE (DELTASONE) 10 mg tablet PLEASE SEE ATTACHED FOR DETAILED DIRECTIONS 5 Active Active Problems Problem Noted Date Diagnosed Date Constipation 06/25/2025 Dysmenorrhea 06/25/2025 Back strain 11/15/2024 Solitary pulmonary nodule 02/15/2024 Bilateral hearing loss 02/17/2023 Hyperlipidemia 02/17/2023 Obesity 02/17/2023 High eosinophil count 10/08/2022 Moderate persistent asthma 01/10/2021 COVID-19 09/23/2020 Anemia due to unknown mechanism 11/24/2019 Acute asthma 12/28/2013 Overview (06/25/2025): IMPRESSION: PT NOTES FOR 3 DAYS SHE CAUGHT A COLD AND IS WHEEZING FOR THE PAST DAY. PT FEELS LIEK SHE NEEDS PREDNISONE, WILL GIVE HER 40MG A DAY, IF SHE IS NOT IMPROVING BY LATER TOMORROW SHE WILL GET SEEN HERE OR AT URGENT CARE; RECORDED 12/28/2013 8:44AM BY FABIAN WALDEN, OFFICE VISIT Allergic rhinitis 12/28/2013 Iron deficiency anemia david balbuena to inadequate dietary iron intake 12/28/2013 Overview (06/25/2025): IMPRESSION: HX OF ANEMIA, NOT ON IRON, HEAVY MENSES WILL CHECK CBC; RECORDED 12/28/2013 8:44AM BY FABIAN WALDEN, OFFICE VISIT Peripheral vertigo 12/28/2013 Overview (06/25/2025): RECORDED 12/28/2013 8:44AM BY FABIAN WALDEN, OFFICE VISIT Pure hypercholesterolemia 12/28/2013 Overview (06/25/2025): RECORDED 12/28/2013 8:44AM BY FABIAN WALDEN, OFFICE VISIT Shoulder joint pain 12/28/2013 Overview (06/25/2025): IMPRESSION: FINALLY BETTER; RECORDED 12/28/2013 8:44AM BY FABIAN WALDEN, OFFICE VISIT Candidal vulvovaginitis 09/29/2013 Overview (06/25/2025): IMPRESSION: NO INFECTION NOW BUT SHE SAYS THAT SHE GETS YEAST INFECTIONS WHEN ON ABX; RECORDED 09/29/2013 7:44AM BY SONIA ADAMES MA, ANNOTATION/ADDENDUM Malaise and fatigue 09/29/2013 Overview (06/25/2025): RECORDED 09/29/2013 7:43AM BY SONIA ADAMES MA, ANNOTATION/ADDENDUM Cough 12/15/2012 Overview (06/25/2025): RECORDED 12/15/2012 1:45PM BY MILTON MCDONALD MA, ANNOTATION/ADDENDUM Acute upper respiratory infection 10/29/2012 Overview (06/25/2025): IMPRESSION: VIRAL. OFFICE WILL CALL HER ON WEDNESDAY TO CHECK IN. DO SINUS RINSE, SUDAFED. CONTINUE FLONASE; RECORDED 10/29/2012 9:41AM BY MILTON MCDONALD MA, ANNOTATION/ADDENDUM Abdominal tenderness 06/29/2012 Overview (06/25/2025): RECORDED 06/29/2012 9:58AM BY NICKI GALVAN MA, ANNOTATION/ADDENDUM Amenorrhea 06/29/2012 Overview (06/25/2025): RECORDED 06/29/2012 9:58AM BY NICKI GALVAN MA, ANNOTATION/ADDENDUM Dysuria 06/29/2012 Overview (06/25/2025): RECORDED 06/29/2012 9:58AM BY NICKI GALVAN MA, ANNOTATION/ADDENDUM Headache 06/29/2012 Overview (06/25/2025): RECORDED 06/29/2012 9:57AM BY NICKI GALVAN MA, ANNOTATION/ADDENDUM Hemorrhage of rectum and anus 06/29/2012 Overview (06/25/2025): RECORDED 06/29/2012 9:58AM BY NICKI GALVAN MA, ANNOTATION/ADDENDUM Rash 06/29/2012 Overview (06/25/2025): IMPRESSION: LOOKS LIKE [place], [place] WITH ELIMSUSAN, HIRAM CALLING IT IN, INSTRUCTIONS ABOUT CLEANING SHEETS.; RECORDED 06/29/2012 9:57AM BY NICKI GALVAN MA, ANNOTATION/ADDENDUM Well child check 06/29/2012 Overview (06/25/2025): RECORDED 06/29/2012 9:58AM BY NICKI GALVAN MA, ANNOTATION/ADDENDUM Chest pain 11/01/2008 Overview (06/25/2025): RECORDED 11/01/2008 10:21AM BY NICKI GALVAN MA, ANNOTATION/ADDENDUM Encounters Date Type Department Care Team Description 06/26/2025 2:20 PM EDT Consult Gastroenterology - [address] [place] [phone] Yoselin Pierre MD Gastroesophageal reflux disease without esophagitis (Primary Dx) from Last 3 Months Surgical History Surgery Date Site/Laterality Comments TUBAL LIGATION 05/06/1999 TONSILLECTOMY 06/04/1978 COLONOSCOPY 09/16/2023 COLONOSCOPY 07/22/2018 Medical History Medical History Date Comments Asthma Lung nodule Hyperlipidemia Lumbar back pain GERD (gastroesophageal reflux disease) Goiter Family History Medical History Relation Name Comments Colon polyps Father Relation Name Status Comments Father Social History Tobacco Use Types Packs/Day Years Used Date Smoking Tobacco: Never Smokeless Tobacco: Never Tobacco Cessation:Counseling Given: Not Answered Alcohol Use Standard Drinks/Week Comments Yes 0 (1 standard drink = 0.6 oz pur e alcohol) social Comments Unknown Sex and Gender Information Value Date Recorded Sex Assigned at Not on file Legal Sex Female 9:30 AM EDT Gender Identity Not on file Sexual Orientation Not on file Last Filed Vital Signs Vital Sign Reading Time Taken Comments Blood Pressure - - Pulse - - Temperature - - Respiratory Rate - - Oxygen Saturation - - Inhaled Oxygen Concentration - - Weight 110 kg (243 lb) 06/26/2025 2:16 PM EDT Height 170.2 cm (5' 7 ) 06/26/2025 2:16 PM EDT Body Mass Index 38.06 06/26/2025 2:16 PM EDT Plan of Treatment Health Maintenance Due Date Last Done Comments Colorectal Cancer Screening: Colonoscopy 1966 Cervical Cancer Screening: Pap Smear 1987 Hepatitis B Vaccines (3 of 3 - 19+ 3-dose series) 01/07/2008 09/02/2007, 07/08/2007 Pneumococcal Vaccine: 50+ Years (2 of 2 - PCV) 08/11/2014 08/11/2013 RSV Immunization Adult Patients (1 - Risk 50-74 years 1-dose series) 2016 Zoster Vaccines (1 of 2) 2016 Breast Cancer Screening 07/24/2023 07/24/2021 Depression Screening 10/04/2024 Cholesterol Screening (Lipid Panel) 02/27/2025 HIV Screening 02/27/2025 Hepatitis C Screening 02/27/2025 Social Influencers of Health Screening 02/27/2025 COVID-19 Vaccine (3 - season) 2025 12/05/2020, 11/13/2020 Influenza Vaccine (#1) 2025 , 08/21/2022, 07/20/2019, Additional history exists DTaP,Tdap,and Td Vaccines (3 - Td or Tdap) 01/18/2029 01/18/2019, 10/04/2008 MMR Vaccines Aged Out 07/27/2007 No longer eligi ble based on patient's age to complete this topic HIB Vaccines Aged Out No longer eligi ble based on patient's age to complete this topic HPV Vaccines Aged Out No longer eligi ble based on patient's age to complete this topic Hepatitis A Vaccines Aged Out No long er eligible based on patient's age to complete this topic IPV Vaccines Aged Out No longer eligi ble based on patient's age to complete this topic Meningococcal ACWY Vaccine Aged Out N o longer eligible based on patient's age to complete this topic Meningococcal B Vaccine Aged Out No l onger eligible based on patient's age to complete this topic RSV Immunization Patients Under 20 months Aged Out No longer eligible based on patient's age to complete this topic Varicella Vaccines Aged Out No longer eligible based on patient's age to complete this topic Insurance [facility] Care Teams Mathematics Education Professor Relationship Specialty Start Date End Date Kristen Mendez MD [address] [phone] PCP - General Internal Medicine 03/05/25
== END 2025-09-13 15:15 | disposition home or self-care (01) ==
LOC: HO.CT 15:14
PROVIDERS: PCP Physician Assistant; Visit Provider Hospitalist
DX: R06.09 Other forms of dyspnea (principal); R78.89 Finding of other specified substances, not normally found in blood
CPT/HCPCS: 36415; 71275; 80048; Q9967

== ENCOUNTER → 2025-09-13 15:16 | Outpatient (BNV) | payer BC, SELFPAY | PROVIDERS: PCP Physician Assistant; Visit Provider Radiology Diagnostic Radiology | DX: R06.09 Other forms of dyspnea (principal) | CPT/HCPCS: 71275 ==